=== PATIENT | male | born 1965 | race African-American/Black ===

== ENCOUNTER 2017-04-05 21:51 | Emergency (ER) | payer MEDICARE, OTHER ==
[~2017-04-05] VITALS: Ht 165.1 cm; Wt 67.1 kg
[~2017-04-05 21:51] MED LIST: CLON0.1T PO; CLOP75TA PO; FERR-26 PO; FOLI1TAB30 PO; ISOS30TA4 PO; LISI10TA2 PO; METO100T2 PO; MINO2.5T12 PO; OLAN10TA9 PO; OMEP20CA9 PO
--- NOTE | 2017-04-05 22:15 | PHYS DOC ---
Past Medical History Past Medical History: Depression, Diabetes-Type I, Hypertension, Renal Disease , Schizophrenia, Other Additional Past Medical Histor: poor historian Past Surgical History: Other Additional Past Surgical Histo: SHUNT PLACEMENT Alcohol Use: None Drug Use: Marijuana Adult General Chief Complaint Chief Complaint: MECHANICAL FALL HPI HPI Patient is a 51 year old -[place] male who presents with left knee pain. He was at [facility] and his walked in front of him tripped him and he fell landing on his left knee. This happened about 10 hours ago. He states he's has a lot of pain in his left knee and it hurts to put weight on it. He denies any other injuries. He denies hitting his head neck chest abdomen or pelvis. States the pain is in his left knee and it radiates up and down his leg. Review of Systems Review of Systems Constitutional: Denies fever or chills [] Eyes: Denies change in visual acuity, redness, or eye pain [] HENT: Denies nasal congestion or sore throat [] Respiratory: Denies cough or shortness of breath [] Cardiovascular: No additional information not addressed in HPI [] GI: Denies abdominal pain, nausea, vomiting, bloody stools or diarrhea [] : Denies dysuria or hematuria [] Musculoskeletal: Denies back pain, pain of left knee Integument: Denies rash or skin lesions [] Neurologic: Denies headache, focal weakness or sensory changes [] Endocrine: Denies polyuria or polydipsia [] Current Medications Current Medications Current Medications Medications (Trade) Dose Ordered Sig/Amanda Start Time Stop Time Status Last Admin Dose Admin Acetaminophen/ Hydrocodone Bitart (Lortab 5/325) 2 tab 1X ONCE 04/05/17 22:30 04/05/17 22:31 DC 04/05/17 22:31 2 TAB Allergies Allergies Allergies Coded Allergies Type Severity Reaction Last Updated Verified povidone-iodine Allergy Intermediate 10/16/13 Yes Physical Exam Physical Exam Constitutional: Well developed, well nourished, no acute distress, non-toxic appearance. [] HENT: Normocephalic, atraumatic, bilateral external ears normal, oropharynx moist, no oral exudates, nose normal. [] Eyes: PERRLA, EOMI, conjunctiva normal, no discharge. [] Neck: Normal range of motion, no tenderness, supple, no stridor. [] Cardiovascular:Heart rate regular rhythm, no murmur [] Lungs & Thorax: Bilateral breath sounds clear to auscultation [] Abdomen: Bowel sounds normal, soft, no tenderness, no masses, no pulsatile masses. [] Skin: Warm, dry, no erythema, no rash. [] Back: No tenderness, no CVA tenderness. [] Extremities: Tender palpation with obvious swelling of the left knee, no cyanosis, no clubbing, no edema. Able to flex and extend, but limited secondary to pain, dorsal pedis pulse 2+ and left lower extremity Neurologic: Alert and oriented X 3, normal motor function, normal sensory function, no focal deficits noted. [] Psychologic: Affect normal, judgement normal, mood normal. [] Current Patient Data Vital Signs Vital Signs Date Time Temp Pulse Resp B/P (MAP) Pulse Ox O2 Delivery O2 Flow Rate FiO2 04/05/17 22:22 98.1 74 18 196/94 (128) 97 Room Air 98.1 EKG EKG [] Radiology/Procedures Radiology/Procedures 4 views of the left knee was performed, no fractures, malalignment's, foreign bodies noted, arthritis noted. He does have a large pre-patellar effusion noted. Impressions: knee pain Course & Med Decision Making Course & Med Decision Making Pertinent Labs and Imaging studies reviewed. (See chart for details) 4 views of the left knee did not show any abnormalities except for confusion. Jovani wrap was applied, 2-5/325 [place] as was given the patient is being discharged home to follow with orthopedic surgery as needed. Crutches were provided. Return precautions given for worsening pain, inability to ambulate, numbness tingling or discoloration of his lower extremities or other concerns. He and his are agreeable Plan B discharged in stable condition at this time. Dragon Disclaimer Dragon Disclaimer This electronic medical record was generated, in whole or in part, using a voice recognition dictation system. Departure Departure Impression: Primary Impression: Knee contusion Disposition: 01 HOME, SELF-CARE Condition: STABLE Referrals: RAYOMND GUADARRAMA MD (PCP) GLEN HA MD Patient Instructions: Knee Pain, [id number] Additional Instructions: You were seen tonight for your left knee pain. You have fluid around your knee that will resolve over the next several days. Your knee is swollen because of this fluid. We applied an Jovani wrap which you can use as needed. Do not wrap it too tight. He can use crutches to help you get around to take the weight off your leg. He can use [place] for pain. [place] is a narcotic pain medicine with Tylenol in it. Please don't drive or taking this medicine or drink alcohol please to use additional Tylenol with this medicine. You should follow-up with orthopedic physician within the next week, if you're not getting any better. Return ER for severe pain, if your foot turns blue or purple, your leg swells, you have uncontrolled pain or other concerns. Scripts Hydrocodone/Apap 5-325 (NORCO 5-325 TABLET) 1 Each Tablet 1-2 TAB PO PRN Q6HRS Y for PAIN, #20 TAB 0 Refills Prov: TARIQ LING MD 04/05/17 Problem Qualifiers Primary Impression: Knee contusion Encounter type: initial encounter Laterality: left Qualified Codes: S80.02XA - Contusion of left knee, initial encounter TARIQ LING MD Apr 05, 2017 22:15
[2017-04-05 22:22] VITALS: BP 196/94
[2017-04-05] MEDS: HYDROcodone/APAP 5/325MG 1 TAB TABLET PO ONE (22:31)
[2017-04-05] MEDS ORDERED: HYDR-971 PO (23:17)
--- NOTE | 2017-04-06 07:52 | RAD ---
Indication pain associated with a fall. AP oblique and lateral views of the left knee were obtained as well as as a sunrise view. No acute bony finding is seen. There is a joint effusion. Extensive vascular calcification is noted. IMPRESSION: No acute bony finding
== END 2017-04-05 23:20 | disposition home or self-care (01) ==
LOC: ER 21:51
DX: S80.02XA Contusion of left knee, initial encounter (principal); I12.9 Hypertensive chronic kidney disease with stage 1 through stage 4 chronic kidney disease, or unspecified chronic kidney disease; E10.22 Type 1 diabetes mellitus with diabetic chronic kidney disease; N18.9 Chronic kidney disease, unspecified; F20.9 Schizophrenia, unspecified; Z91.041 Radiographic dye allergy status; W01.0XXA Fall on same level from slipping, tripping and stumbling without subsequent striking against object, initial encounter; Y93.89 Activity, other specified; Y99.8 Other external cause status; Y92.89 Other specified places as the place of occurrence of the external cause
CPT/HCPCS: 29515; 73564; 99284-25

== ENCOUNTER 2017-06-14 16:04 | Inpatient (IN) | payer MEDICARE, OTHER ==
[~2017-06-14] VITALS: Ht 165.1 cm; Wt 61.9 kg
[~2017-06-14 16:04] MED LIST changes: +HYDR-971 PO; -METO100T2 PO; +METO100T7 PO
[2017-06-14] MEDS ORDERED: OXYC-328 PO (16:49)
[2017-06-14] MEDS ORDERED: DIAZ10TA5 PO (16:49)
[2017-06-14] MEDS ORDERED: DIPH25CA58 PO (17:03)
[2017-06-14] MEDS ORDERED: ONDANSETRON PF 4 MG/2 ML VIAL. IV PRN (17:30)
[2017-06-14] MEDS ORDERED: diphenhydrAMINE HCL 25 MG CAPSULE PO PRN (17:30)
[2017-06-14] MEDS: MINOXIDIL 2.5 MG TABLET PO SCH (18:00)
[2017-06-14] MEDS: PANTOPRAZOLE 40 MG TABLET.DR. PO SCH (18:00)
[2017-06-14] MEDS ORDERED: INFLUENZA VAX SCREEN BY RX. MC ONE (18:45)
[2017-06-14 19:00] VITALS: BP 115/69
[2017-06-14 19:06] LABS: BASO % 1 % (0-3); EOS % 2 % (0-3); HEMATOCRIT 34.5 % (39.0-53.0); LYMPH # 1.1 x10^3/uL (1.0-4.8); LYMPH % 27 % (24-48); MEAN CORPUSCULAR HEMOGLOBIN 26 pg (25-35); MEAN CORPUSCULAR HGB CONC 32 g/dL (31-37); MEAN CORPUSCULAR VOLUME 82 fL (79-100); MONO % 17 % (0-9); NEUT % 53 % (31-73); PLATELET COUNT 117 x10^3/uL (140-400); RED CELL DISTRIBUTION WIDTH 20.3 % (11.5-14.5); WHITE BLOOD COUNT 4.1 x10^3/uL (4.0-11.0)
[2017-06-14 19:14] VITALS: BP 127/83
[2017-06-14 19:23] LABS: ALBUMIN 3.7 g/dL (3.4-5.0); ALBUMIN/GLOBULIN RATIO 0.9 (1.0-1.7); CALCIUM 8.4 mg/dL (8.5-10.1); CREATININE 9.6 mg/dL (0.7-1.3); GFR 6.9; POTASSIUM 3.3 mmol/L (3.5-5.1); TOTAL BILIRUBIN 0.4 mg/dL (0.2-1.0); TOTAL PROTEIN 7.6 g/dL (6.4-8.2)
[2017-06-14 19:34] LABS: PLT ESTIMATE DECREASED (ADEQUATE)
[2017-06-14 19:35] LABS: ANISOCYTOSIS MOD; HYPOCHROMIA SLIGHT; POIKILOCYTOSIS SLIGHT
[2017-06-14] MEDS: SODIUM BICARBONATE VIAL 50 MEQ in IV 1/2 NORMAL SALINE 1,000 ML IV SCH (20:24)
[2017-06-14] MEDS: diphenhydrAMINE HCL 25 MG CAPSULE PO PRN (20:25)
[2017-06-14] MEDS: diazePAM 5 MG TABLET PO SCH (20:25)
[2017-06-14] MEDS: oxyCODONE/APAP 10/325 1 TAB TABLET PO PRN (20:25)
[2017-06-14] MEDS: cloNIDine HCL 0.1 MG TABLET PO SCH (20:26)
[2017-06-14] MEDS: METOPROLOL TART IMMED RELEASE 50 MG TABLET. PO SCH (20:26)
[2017-06-14] MEDS: OLANZapine 5 MG TABLET PO SCH (20:27)
[2017-06-14] MEDS ORDERED: POTASSIUM CHLORIDE 10 MEQ TABLET.ER. PO ONE (21:15)
--- NOTE | 2017-06-14 21:24 | PDOC1 ---
History and Physical Date of Admission Date of Admission 06/13/17 Identification/Chief Complaint Chief Complaint N/V dehydration Problems: Source Source: Chart review, Patient Past Medical History Cardiovascular: CAD, HTN, Hyperlipidemia, Other (stent) Pulmonary: COPD GI: GERD Heme/Onc: Anemia NOS Psych: Other (paranoid) Rheumatologic: Other (DJD) Renal/: Chronic renal insuff, Other (dialysis) Endocrine: Diabetes Family History Family History: Hypertension Social History Smoke: 1 pack per day ALCOHOL: occassional Drugs: None Current Medications Current Medications Current Medications Medications (Trade) Dose Ordered Sig/Amanda Start Time Stop Time Status Last Admin Dose Admin Clonidine HCl (Catapres) 0.1 mg BID 06/14/17 21:00 06/14/17 20:26 0.1 MG Clopidogrel Bisulfate (Plavix) 75 mg DAILY 06/15/17 09:00 Diazepam (Valium) 10 mg BID 06/14/17 21:00 06/14/17 20:25 10 MG Diphenhydramine HCl (Benadryl) 50 mg PRN Q6HRS PRN 06/14/17 17:30 06/14/17 20:25 50 MG Influenza Virus Vaccine Quadrival (Fluarix Quad [id number] Syringe) 0.5 ml ONCE ONCE 06/15/17 09:00 06/15/17 09:01 Info (Do NOT chart on this placeholder) 0.5 each 1X ONCE 06/14/17 18:45 06/14/17 18:56 DC 06/14/17 18:45 0.5 EACH Isosorbide Mononitrate (Imdur) 30 mg DAILY 06/15/17 09:00 Lisinopril (Prinivil) 10 mg DAILY 06/15/17 09:00 Metoprolol Tartrate (Lopressor) 100 mg BID 06/14/17 21:00 06/14/17 20:26 100 MG Minoxidil (Loniten) 2.5 mg BID@0900,1700 06/14/17 18:00 Olanzapine (ZyPREXA) 10 mg QHS 06/14/17 21:00 06/14/17 20:27 10 MG Ondansetron HCl (Zofran) 4 mg PRN Q6HRS PRN 06/14/17 17:30 Oxycodone/ Acetaminophen (Percocet 10/325) 1 tab PRN Q6HRS PRN 06/14/17 17:30 06/14/17 20:25 1 TAB Pantoprazole Sodium (Protonix) 40 mg DAILYAC 06/14/17 18:00 Sodium Bicarbonate 50 meq/Sodium Chloride 1,050 ml @ 75 mls/hr Q14H 06/14/17 17:30 06/14/17 20:24 75 MLS/HR Vitamin B Complex/ Vitamin C (Iona-Dede) 1 tab DAILY 06/15/17 09:00 Allergies Allergies Allergies Coded Allergies Type Severity Reaction Last Updated Verified povidone-iodine Allergy Intermediate 10/16/13 Yes ROS Review of System CONSTITUTIONAL: No fever or chills EYES: No recent changes SKIN: No rash or itching CARDIOVASCULAR: No chest pain, syncope, palpitations, or edema RESPIRATORY: No SOB or cough GASTROINTESTINAL: + nausea, vomiting and dehydration NEUROLOGICAL: No headaches or weakness ENDOCRINE: No cold or heat intolerance GENITOURINARY: No urgency or frequency of urination MUSCULOSKELETAL: + back pain and joint pain LYMPHATICS: No enlarged lymph nodes PSYCHIATRIC: + anxiety Physical Exam Physical Exam GEN.: No apparent distress. Alert and oriented. HEENT: Head is normocephalic, atraumatic NECK: Supple. LUNGS: Clear to auscultation. HEART: RRR, S1, S2 present. Peripheral pulses intact ABDOMEN: Soft, nontender. Positive bowel sounds. EXTREMITIES: Without any cyanosis. NEUROLOGIC: Normal speech, normal tone PSYCHIATRIC: Normal affect, normal mood. SKIN: No ulcerations Vitals Vitals Vital Signs Date Time Temp Pulse Resp B/P (MAP) Pulse Ox O2 Delivery O2 Flow Rate FiO2 06/14/17 20:26 82 127/83 06/14/17 20:25 18 99 06/14/17 19:14 98.1 Room Air 98.1 Labs Labs Laboratory Tests Test 06/14/17 18:50 White Blood Count 4.1 x10^3/uL (4.0-11.0) Red Blood Count 4.20 x10^6/uL (4.30-5.70) Hemoglobin 11.0 g/dL (13.0-17.5) Hematocrit 34.5 % (39.0-53.0) Mean Corpuscular Volume 82 fL (79-100) Mean Corpuscular Hemoglobin 26 pg (25-35) Mean Corpuscular Hemoglobin Concent 32 g/dL (31-37) Red Cell Distribution Width 20.3 % (11.5-14.5) Platelet Count 117 x10^3/uL (140-400) Neutrophils (%) (Auto) 53 % (31-73) Lymphocytes (%) (Auto) 27 % (24-48) Monocytes (%) (Auto) 17 % (0-9) Eosinophils (%) (Auto) 2 % (0-3) Basophils (%) (Auto) 1 % (0-3) Neutrophils # (Auto) 2.2 x10^3uL (1.8-7.7) Lymphocytes # (Auto) 1.1 x10^3/uL (1.0-4.8) Monocytes # (Auto) 0.7 x10^3/uL (0.0-1.1) Eosinophils # (Auto) 0.1 x10^3/uL (0.0-0.7) Basophils # (Auto) 0.0 x10^3/uL (0.0-0.2) Platelet Estimate Decreased (ADEQUATE) Hypochromasia Slight Poikilocytosis Slight Anisocytosis Mod Sodium Level 138 mmol/L (136-145) Potassium Level 3.3 mmol/L (3.5-5.1) Chloride Level 91 mmol/L (98-107) Carbon Dioxide Level 35 mmol/L (21-32) Anion Gap 12 (6-14) Blood Urea Nitrogen 32 mg/dL (8-26) Creatinine 9.6 mg/dL (0.7-1.3) Estimated GFR (Cockcroft-Gault) 6.9 BUN/Creatinine Ratio 3 (6-20) Glucose Level 93 mg/dL (70-99) Calcium Level 8.4 mg/dL (8.5-10.1) Total Bilirubin 0.4 mg/dL (0.2-1.0) Aspartate Amino Transf (AST/SGOT) 23 U/L (15-37) Alanine Aminotransferase (ALT/SGPT) 12 U/L (16-63) Alkaline Phosphatase 164 U/L (46-116) Total Protein 7.6 g/dL (6.4-8.2) Albumin 3.7 g/dL (3.4-5.0) Albumin/Globulin Ratio 0.9 (1.0-1.7) Laboratory Tests Test 06/14/17 18:50 White Blood Count 4.1 x10^3/uL (4.0-11.0) Red Blood Count 4.20 x10^6/uL (4.30-5.70) Hemoglobin 11.0 g/dL (13.0-17.5) Hematocrit 34.5 % (39.0-53.0) Mean Corpuscular Volume 82 fL (79-100) Mean Corpuscular Hemoglobin 26 pg (25-35) Mean Corpuscular Hemoglobin Concent 32 g/dL (31-37) Red Cell Distribution Width 20.3 % (11.5-14.5) Platelet Count 117 x10^3/uL (140-400) Neutrophils (%) (Auto) 53 % (31-73) Lymphocytes (%) (Auto) 27 % (24-48) Monocytes (%) (Auto) 17 % (0-9) Eosinophils (%) (Auto) 2 % (0-3) Basophils (%) (Auto) 1 % (0-3) Neutrophils # (Auto) 2.2 x10^3uL (1.8-7.7) Lymphocytes # (Auto) 1.1 x10^3/uL (1.0-4.8) Monocytes # (Auto) 0.7 x10^3/uL (0.0-1.1) Eosinophils # (Auto) 0.1 x10^3/uL (0.0-0.7) Basophils # (Auto) 0.0 x10^3/uL (0.0-0.2) Platelet Estimate Decreased (ADEQUATE) Hypochromasia Slight Poikilocytosis Slight Anisocytosis Mod Sodium Level 138 mmol/L (136-145) Potassium Level 3.3 mmol/L (3.5-5.1) Chloride Level 91 mmol/L (98-107) Carbon Dioxide Level 35 mmol/L (21-32) Anion Gap 12 (6-14) Blood Urea Nitrogen 32 mg/dL (8-26) Creatinine 9.6 mg/dL (0.7-1.3) Estimated GFR (Cockcroft-Gault) 6.9 BUN/Creatinine Ratio 3 (6-20) Glucose Level 93 mg/dL (70-99) Calcium Level 8.4 mg/dL (8.5-10.1) Total Bilirubin 0.4 mg/dL (0.2-1.0) Aspartate Amino Transf (AST/SGOT) 23 U/L (15-37) Alanine Aminotransferase (ALT/SGPT) 12 U/L (16-63) Alkaline Phosphatase 164 U/L (46-116) Total Protein 7.6 g/dL (6.4-8.2) Albumin 3.7 g/dL (3.4-5.0) Albumin/Globulin Ratio 0.9 (1.0-1.7) VTE Prophylaxis Ordered VTE Prophylaxis Devices: Yes VTE Pharmacological Prophylaxi: Yes Assessment/Plan Assessment/Plan 1- Gastroenteritis, N/V and diarrhea 2-dehydration 3-hypokalemia 4-HTN 5-CAD by hx and stent 6-smoker 7-HILDA DEVRIES MD Jun 14, 2017 21:24
[2017-06-14] MEDS ORDERED: DEXTROSE 50% 25 GM / 50ML DISP.SYRIN. IV PRN (21:30)
[2017-06-14 23:00] VITALS: BP 120/70
[2017-06-15 03:28] VITALS: BP 98/49
[2017-06-15 05:27] LABS: BASO % 1 % (0-3); EOS % 4 % (0-3); HEMOGLOBIN 11.7 g/dL (13.0-17.5); LYMPH # 1.2 x10^3/uL (1.0-4.8); LYMPH % 34 % (24-48); MEAN CORPUSCULAR HEMOGLOBIN 27 pg (25-35); MEAN CORPUSCULAR HGB CONC 32 g/dL (31-37); MEAN CORPUSCULAR VOLUME 84 fL (79-100); MONO % 12 % (0-9); NEUT % 48 % (31-73); PLATELET COUNT 120 x10^3/uL (140-400); RED BLOOD COUNT 4.41 x10^6/uL (4.30-5.70); RED CELL DISTRIBUTION WIDTH 20.6 % (11.5-14.5); WHITE BLOOD COUNT 3.6 x10^3/uL (4.0-11.0)
[2017-06-15 05:49] LABS: ALBUMIN/GLOBULIN RATIO 0.9 (1.0-1.7); CALCIUM 6.4 mg/dL (8.5-10.1); CREATININE 8.6 mg/dL (0.7-1.3); GFR 7.9; TOTAL BILIRUBIN 0.3 mg/dL (0.2-1.0); TOTAL PROTEIN 6.4 g/dL (6.4-8.2)
[2017-06-15 05:55] LABS: POTASSIUM 2.8 mmol/L (3.5-5.1)
[2017-06-15] MEDS: PANTOPRAZOLE 40 MG TABLET.DR. PO SCH (06:14)
[2017-06-15] MEDS: oxyCODONE/APAP 10/325 1 TAB TABLET PO PRN ×3 (06:14→21:49)
[2017-06-15] MEDS ORDERED: POTASSIUM CHLORIDE 20 MEQ TABLET.ER. PO ONE (06:15)
[2017-06-15 07:00] VITALS: BP 97/69
--- NOTE | 2017-06-15 08:05 | PDOC2 ---
CONSULT Date of Consult Date of Consult DATE: 06/15/17 TIME: 08:05 Reason for Consult Reason for Consult: ESRD Referring Physician Referring Physician: Dr Lan Identification/Chief Complaint Chief Complaint NVD Problems: Source Source: Chart review, Patient History of Present Illness Reason for Visit: as dictated Past Medical History Cardiovascular: CAD, HTN, Hyperlipidemia, Other (stent) Pulmonary: COPD GI: GERD Heme/Onc: Anemia NOS Psych: Other (paranoid) Rheumatologic: Other (DJD) Renal/: Chronic renal insuff, Other (dialysis) Endocrine: Diabetes Family History Family History: Hypertension, Kidney Disease (uncle on HD) Social History 1 pack per day ALCOHOL: occassional Drugs: None Lives: Alone Current Medications Current Medications Current Medications Clonidine HCl (Catapres) 0.1 mg BID PO Last administered on 06/14/17 20:26; Start 06/14/17 at 21:00 Clopidogrel Bisulfate (Plavix) 75 mg DAILY PO ; Start 06/15/17 at 09:00 Diazepam (Valium) 10 mg BID PO Last administered on 06/14/17 20:25; Start at 21:00 Diphenhydramine HCl (Benadryl) 25 mg PRN Q6HRS PRN PO IT; Start 06/14/17 at 17 :30 Diphenhydramine HCl (Benadryl) 50 mg PRN Q6HRS PRN PO IT Last administered on 06/14/17 20:25; Start 06/14/17 at 17:30 Isosorbide Mononitrate (Imdur) 30 mg DAILY PO ; Start 06/15/17 at 09:00 Lisinopril (Prinivil) 10 mg DAILY PO ; Start 06/15/17 at 09:00 Minoxidil (Loniten) 2.5 mg BID@0900,1700 PO ; Start 06/14/17 at 18:00 Oxycodone/ Acetaminophen (Percocet 10/325) 1 tab PRN Q6HRS PRN PO PAIN Last administered on 06/15/17 06:14; Start 06/14/17 at 17:30 Vitamin B Complex/ Vitamin C (Iona-Dede) 1 tab DAILY PO ; Start 06/15/17 at 09: 00 Metoprolol Tartrate (Lopressor) 100 mg BID PO Last administered on 06/14/17 20:26; Start 06/14/17 at 21:00 Olanzapine (ZyPREXA) 10 mg QHS PO Last administered on 06/14/17 20:27; Start 06/14/17 at 21:00 Pantoprazole Sodium (Protonix) 40 mg DAILYAC PO Last administered on 06:14; Start 06/14/17 at 18:00 Ondansetron HCl (Zofran) 4 mg PRN Q6HRS PRN IV NAUSEA/VOMITING; Start at 17:30 Sodium Bicarbonate 50 meq/Sodium Chloride 1,050 ml @ 75 mls/hr Q14H IV Last administered on 06/14/17 20:24; Start 06/14/17 at 17:30 Info (Do NOT chart on this placeholder) 0.5 each 1X ONCE MC Last administered on 06/14/17 18:45; Start 06/14/17 at 18:45; Stop 06/14/17 at 18:56; Status DC Influenza Virus Vaccine Quadrival (Fluarix Quad [id number] Syringe) 0.5 ml ONCE ONCE VAX IM ; Start 06/15/17 at 09:00; Stop 06/15/17 at 09:01 Potassium Chloride (Klor-Con) 10 meq 1X ONCE PO Last administered on 21:56; Start 06/14/17 at 21:15; Stop 06/14/17 at 21:19; Status DC Insulin Aspart (NovoLOG) 0-5 UNITS TIDWMEALS SQ ; Start 06/15/17 at 08:00 Dextrose (Dextrose 50%-Water Syringe) 12.5 gm PRN Q15MIN PRN IV SEE COMMENTS; Start 06/14/17 at 21:30 Potassium Chloride (Klor-Con) 40 meq 1X ONCE PO Last administered on 06:14; Start 06/15/17 at 06:15; Stop 06/15/17 at 06:16; Status DC Active Scripts Active Reported Benadryl (Diphenhydramine Hcl) 25 Mg Capsule 2 Cap PO PRN Q6HRS PRN Benadryl (Diphenhydramine Hcl) 25 Mg Capsule 1 Cap PO PRN Q6HRS PRN Diazepam 10 Mg Tablet 10 Mg PO BID Percocet 10-325 Mg Tablet (Oxycodone/Acetaminophen) 1 Each Tablet 1 Tab PO PRN Q6HRS PRN Ferrous Sulfate 325 Mg Tablet 325 Mg PO BID Lisinopril 10 Mg Tablet 10 Mg PO DAILY Dialyvite Tablet (Folic Acid/Vitamin B Comp W-C) 1 Each Tablet 1 Each PO DAILY Clopidogrel (Clopidogrel Bisulfate) 75 Mg Tablet 75 Mg PO DAILY Omeprazole 20 Mg Capsule.dr 20 Mg PO BID Isosorbide Mononitrate Er (Isosorbide Mononitrate) 30 Mg Tab.er.24h 30 Mg PO DAILY Metoprolol Tartrate 100 Mg Tablet 100 Mg PO BID Clonidine Hcl 0.1 Mg Tablet 0.1 Mg PO BID Olanzapine 10 Mg Tablet 10 Mg PO HS Minoxidil 2.5 Mg Tablet 2.5 Mg PO BID Allergies Allergies: Coded Allergies: povidone-iodine (Verified Allergy, Intermediate, 10/16/13) ROS Review of System GEN: no Fevers no Chills EYES: no new Visual Complaints ENT: no EN Drainage no Hearing deficiets CVS: no Orthopnea no CP RESP: no SOB no LARRY GI: + Nausea + Vomiting + Diarrhea : no Dysuria no Urgency HEME: no easy bruising no Palp Ly Nodes NEURO no Focal Weakness no Sz PSYCH: no Suicidal Ideation no Depression SKIN: no Rashes ENDO: no Polyuria or Polydipsia no Hot/Cold Intolerance MU SK: occ Arthraigia occ Myalgia Physical Exam Physical Exam General Appearance: Awake Alert Oriented x 3 In no Distress Eyes: VIsion Unchanged Conjunctiva Normal EN: No EN Drainage Mucous Memb. moist Neck: no JVD no JVP Supple no Thyromegaly CVS: S1 S2 + Murmur No Gallop No Rub no Edema Resp: no Rales no Rhonchi no Acc. Muscle use GI: BAS +ve NO Bruit Non Tender Non Distended : no CVA tenderness; no Suprapubic Tenderness SKIN: no Rashes Breast Exam deferred Mu.Sk: Adequate ROM no Muscle Atrophy Heme: Unable to palpate Obvious LAD no palp Splenomegaly NEURO: Good Strength and Tone Cranial Nerves II - XII grossly intact Psych: not Depressed no Active hallucination Vital Signs Vital Signs Date Time Temp Pulse Resp B/P (MAP) Pulse Ox O2 Delivery O2 Flow Rate FiO2 06/15/17 07:14 20 93 Room Air 06/15/17 03:28 96.9 58 98/49 (65) 96.9 Assessment & Plan ESRD: Dialysis as below F 180 NR 3.5 Hrs 3 K 3.0 Ca 140 Na 30 HC03 Qb 350 + Qd 500+ Heparin 0 Units Uf to dry weight as tolerated May give 25-50 gms of 25% Albumin if needed to maintain Hemodynamic stability Treatment plan reviewed and discussed with photographic laboratory technician Low K - suspect due to IVF with Bicarb - PO KCl given so 3K bath today Lowisch Ricardo unclear etio - 3 Ricardo bath, check and correct mag if needed. Anemia: no Epogen for hgb > 11. Transfuse with next HD as needed. HTN: Current BP meds reviewed. See orders for changes. Bone & Mineral: fololow phos and alter binder regimen ? Accuracy of med list Discussed Plan of Care and prognosis etc. at length with pt Labs Labs Laboratory Tests Test 06/14/17 18:50 06/14/17 22:19 06/15/17 04:25 White Blood Count 4.1 x10^3/uL (4.0-11.0) 3.6 x10^3/uL (4.0-11.0) Red Blood Count 4.20 x10^6/uL (4.30-5.70) 4.41 x10^6/uL (4.30-5.70) Hemoglobin 11.0 g/dL (13.0-17.5) 11.7 g/dL (13.0-17.5) Hematocrit 34.5 % (39.0-53.0) 37.0 % (39.0-53.0) Mean Corpuscular Volume 82 fL (79-100) 84 fL (79-100) Mean Corpuscular Hemoglobin 26 pg (25-35) 27 pg (25-35) Mean Corpuscular Hemoglobin Concent 32 g/dL (31-37) 32 g/dL (31-37) Red Cell Distribution Width 20.3 % (11.5-14.5) 20.6 % (11.5-14.5) Platelet Count 117 x10^3/uL (140-400) 120 x10^3/uL (140-400) Neutrophils (%) (Auto) 53 % (31-73) 48 % (31-73) Lymphocytes (%) (Auto) 27 % (24-48) 34 % (24-48) Monocytes (%) (Auto) 17 % (0-9) 12 % (0-9) Eosinophils (%) (Auto) 2 % (0-3) 4 % (0-3) Basophils (%) (Auto) 1 % (0-3) 1 % (0-3) Neutrophils # (Auto) 2.2 x10^3uL (1.8-7.7) 1.8 x10^3uL (1.8-7.7) Lymphocytes # (Auto) 1.1 x10^3/uL (1.0-4.8) 1.2 x10^3/uL (1.0-4.8) Monocytes # (Auto) 0.7 x10^3/uL (0.0-1.1) 0.4 x10^3/uL (0.0-1.1) Eosinophils # (Auto) 0.1 x10^3/uL (0.0-0.7) 0.2 x10^3/uL (0.0-0.7) Basophils # (Auto) 0.0 x10^3/uL (0.0-0.2) 0.0 x10^3/uL (0.0-0.2) Platelet Estimate Decreased (ADEQUATE) Hypochromasia Slight Poikilocytosis Slight Anisocytosis Mod Sodium Level 138 mmol/L (136-145) 138 mmol/L (136-145) Potassium Level 3.3 mmol/L (3.5-5.1) 2.8 mmol/L (3.5-5.1) Chloride Level 91 mmol/L (98-107) 91 mmol/L (98-107) Carbon Dioxide Level 35 mmol/L (21-32) 36 mmol/L (21-32) Anion Gap 12 (6-14) 11 (6-14) Blood Urea Nitrogen 32 mg/dL (8-26) 29 mg/dL (8-26) Creatinine 9.6 mg/dL (0.7-1.3) 8.6 mg/dL (0.7-1.3) Estimated GFR (Cockcroft-Gault) 6.9 7.9 BUN/Creatinine Ratio 3 (6-20) 3 (6-20) Glucose Level 93 mg/dL (70-99) 109 mg/dL (70-99) Calcium Level 8.4 mg/dL (8.5-10.1) 6.4 mg/dL (8.5-10.1) Magnesium Level 1.9 mg/dL (1.8-2.4) Total Bilirubin 0.4 mg/dL (0.2-1.0) 0.3 mg/dL (0.2-1.0) Aspartate Amino Transf (AST/SGOT) 23 U/L (15-37) 19 U/L (15-37) Alanine Aminotransferase (ALT/SGPT) 12 U/L (16-63) 9 U/L (16-63) Alkaline Phosphatase 164 U/L (46-116) 150 U/L (46-116) Total Protein 7.6 g/dL (6.4-8.2) 6.4 g/dL (6.4-8.2) Albumin 3.7 g/dL (3.4-5.0) 3.0 g/dL (3.4-5.0) Albumin/Globulin Ratio 0.9 (1.0-1.7) 0.9 (1.0-1.7) Glucose (Fingerstick) 200 mg/dL (70-99) Lipase 72 U/L (73-393) Laboratory Tests Test 06/14/17 18:50 06/14/17 22:19 06/15/17 04:25 White Blood Count 4.1 x10^3/uL (4.0-11.0) 3.6 x10^3/uL (4.0-11.0) Red Blood Count 4.20 x10^6/uL (4.30-5.70) 4.41 x10^6/uL (4.30-5.70) Hemoglobin 11.0 g/dL (13.0-17.5) 11.7 g/dL (13.0-17.5) Hematocrit 34.5 % (39.0-53.0) 37.0 % (39.0-53.0) Mean Corpuscular Volume 82 fL (79-100) 84 fL (79-100) Mean Corpuscular Hemoglobin 26 pg (25-35) 27 pg (25-35) Mean Corpuscular Hemoglobin Concent 32 g/dL (31-37) 32 g/dL (31-37) Red Cell Distribution Width 20.3 % (11.5-14.5) 20.6 % (11.5-14.5) Platelet Count 117 x10^3/uL (140-400) 120 x10^3/uL (140-400) Neutrophils (%) (Auto) 53 % (31-73) 48 % (31-73) Lymphocytes (%) (Auto) 27 % (24-48) 34 % (24-48) Monocytes (%) (Auto) 17 % (0-9) 12 % (0-9) Eosinophils (%) (Auto) 2 % (0-3) 4 % (0-3) Basophils (%) (Auto) 1 % (0-3) 1 % (0-3) Neutrophils # (Auto) 2.2 x10^3uL (1.8-7.7) 1.8 x10^3uL (1.8-7.7) Lymphocytes # (Auto) 1.1 x10^3/uL (1.0-4.8) 1.2 x10^3/uL (1.0-4.8) Monocytes # (Auto) 0.7 x10^3/uL (0.0-1.1) 0.4 x10^3/uL (0.0-1.1) Eosinophils # (Auto) 0.1 x10^3/uL (0.0-0.7) 0.2 x10^3/uL (0.0-0.7) Basophils # (Auto) 0.0 x10^3/uL (0.0-0.2) 0.0 x10^3/uL (0.0-0.2) Platelet Estimate Decreased (ADEQUATE) Hypochromasia Slight Poikilocytosis Slight Anisocytosis Mod Sodium Level 138 mmol/L (136-145) 138 mmol/L (136-145) Potassium Level 3.3 mmol/L (3.5-5.1) 2.8 mmol/L (3.5-5.1) Chloride Level 91 mmol/L (98-107) 91 mmol/L (98-107) Carbon Dioxide Level 35 mmol/L (21-32) 36 mmol/L (21-32) Anion Gap 12 (6-14) 11 (6-14) Blood Urea Nitrogen 32 mg/dL (8-26) 29 mg/dL (8-26) Creatinine 9.6 mg/dL (0.7-1.3) 8.6 mg/dL (0.7-1.3) Estimated GFR (Cockcroft-Gault) 6.9 7.9 BUN/Creatinine Ratio 3 (6-20) 3 (6-20) Glucose Level 93 mg/dL (70-99) 109 mg/dL (70-99) Calcium Level 8.4 mg/dL (8.5-10.1) 6.4 mg/dL (8.5-10.1) Magnesium Level 1.9 mg/dL (1.8-2.4) Total Bilirubin 0.4 mg/dL (0.2-1.0) 0.3 mg/dL (0.2-1.0) Aspartate Amino Transf (AST/SGOT) 23 U/L (15-37) 19 U/L (15-37) Alanine Aminotransferase (ALT/SGPT) 12 U/L (16-63) 9 U/L (16-63) Alkaline Phosphatase 164 U/L (46-116) 150 U/L (46-116) Total Protein 7.6 g/dL (6.4-8.2) 6.4 g/dL (6.4-8.2) Albumin 3.7 g/dL (3.4-5.0) 3.0 g/dL (3.4-5.0) Albumin/Globulin Ratio 0.9 (1.0-1.7) 0.9 (1.0-1.7) Glucose (Fingerstick) 200 mg/dL (70-99) Lipase 72 U/L (73-393) VANDANA READ MD Jun 15, 2017 08:05
[2017-06-15] MEDS: INSULIN ASPART 300 UNITS/3 ML INSULN.PEN SQ SCH ×3 (08:37→18:06)
--- NOTE | 2017-06-15 08:37 | RAD ---
Indication: Shortness of air. Time of exam 1917 hours. Correlation is made with prior chest from 12/14/2016. The heart is enlarged. Lungs are clear. No infiltrate or failure is detected. No effusion or pneumothorax is seen. Impression: No acute cardiopulmonary process is detected.
[2017-06-15] MEDS: cloNIDine HCL 0.1 MG TABLET PO SCH ×2 (08:38→21:49)
[2017-06-15] MEDS: MINOXIDIL 2.5 MG TABLET PO SCH ×2 (08:38→17:00)
[2017-06-15] MEDS: LISINOPRIL 10 MG TABLET PO SCH (08:39)
[2017-06-15] MEDS: METOPROLOL TART IMMED RELEASE 50 MG TABLET. PO SCH ×2 (08:39→21:48)
[2017-06-15] MEDS: CLOPIDOGREL BISULFATE 75 MG TABLET PO SCH (08:41)
[2017-06-15] MEDS: ISOSORBIDE MONONITRATE ER 30 MG TAB.ER.24H PO SCH (08:41)
[2017-06-15] MEDS: FOLIC/VIT B COMP W-C (RENAL) TABLET. PO SCH (08:42)
[2017-06-15] MEDS: diazePAM 5 MG TABLET PO SCH ×2 (08:42→21:48)
[2017-06-15] MEDS: SODIUM BICARBONATE VIAL 50 MEQ in IV 1/2 NORMAL SALINE 1,000 ML IV SCH (08:57)
[2017-06-15] MEDS: diphenhydrAMINE HCL 25 MG CAPSULE PO PRN ×2 (08:58→21:49)
[2017-06-15] MEDS ORDERED: FLU VACC QS2017-18 (36MOS+)/PF 0.5 ML SYRINGE. VAX IM ONE (09:00)
--- NOTE | 2017-06-15 09:54 | PDOC ---
SUBJECTIVE Subjective no diarrhea, still nausea, feels some better but c/o severe iching especially at night when warm OBJECTIVE Vital Signs Vital Signs Date Time Temp Pulse Resp B/P (MAP) Pulse Ox O2 Delivery O2 Flow Rate FiO2 06/15/17 07:14 20 93 Room Air 06/15/17 07:00 97.8 114 18 97/69 (78) 98 Room Air 97.8 06/15/17 06:14 93 Room Air 06/15/17 03:28 96.9 58 18 98/49 (65) 93 Room Air 96.9 06/14/17 23:00 97.9 56 18 120/70 (87) 94 Room Air 97.9 06/14/17 20:26 82 127/83 06/14/17 20:26 82 127/83 06/14/17 20:25 18 99 06/14/17 20:00 Room Air 06/14/17 19:14 98.1 82 20 127/83 (98) 99 Room Air 98.1 06/14/17 19:00 97.7 51 18 115/69 (84) 92 Room Air 97.7 I & O Intake and Output 06/15/17 07:00 Intake Total 650 ml Balance 650 ml Intake Oral 650 ml PHYSICAL EXAM Physical Exam lungs clear heart RRR abd soft ext no edema skin mei of itching with scratches and few bumps ASSESSMENT/PLAN Assessment/Plan 1 gastroenteritis better will advance diet 2 hypokalemia replacing 3 scabies/Itching 4 CKD on dialysis Problems: COMMENT Lab Laboratory Tests Test 06/14/17 18:50 06/14/17 22:19 06/15/17 04:25 06/15/17 07:46 White Blood Count 4.1 x10^3/uL (4.0-11.0) 3.6 x10^3/uL (4.0-11.0) Red Blood Count 4.20 x10^6/uL (4.30-5.70) 4.41 x10^6/uL (4.30-5.70) Hemoglobin 11.0 g/dL (13.0-17.5) 11.7 g/dL (13.0-17.5) Hematocrit 34.5 % (39.0-53.0) 37.0 % (39.0-53.0) Mean Corpuscular Volume 82 fL (79-100) 84 fL (79-100) Mean Corpuscular Hemoglobin 26 pg (25-35) 27 pg (25-35) Mean Corpuscular Hemoglobin Concent 32 g/dL (31-37) 32 g/dL (31-37) Red Cell Distribution Width 20.3 % (11.5-14.5) 20.6 % (11.5-14.5) Platelet Count 117 x10^3/uL (140-400) 120 x10^3/uL (140-400) Neutrophils (%) (Auto) 53 % (31-73) 48 % (31-73) Lymphocytes (%) (Auto) 27 % (24-48) 34 % (24-48) Monocytes (%) (Auto) 17 % (0-9) 12 % (0-9) Eosinophils (%) (Auto) 2 % (0-3) 4 % (0-3) Basophils (%) (Auto) 1 % (0-3) 1 % (0-3) Neutrophils # (Auto) 2.2 x10^3uL (1.8-7.7) 1.8 x10^3uL (1.8-7.7) Lymphocytes # (Auto) 1.1 x10^3/uL (1.0-4.8) 1.2 x10^3/uL (1.0-4.8) Monocytes # (Auto) 0.7 x10^3/uL (0.0-1.1) 0.4 x10^3/uL (0.0-1.1) Eosinophils # (Auto) 0.1 x10^3/uL (0.0-0.7) 0.2 x10^3/uL (0.0-0.7) Basophils # (Auto) 0.0 x10^3/uL (0.0-0.2) 0.0 x10^3/uL (0.0-0.2) Platelet Estimate Decreased (ADEQUATE) Hypochromasia Slight Poikilocytosis Slight Anisocytosis Mod Sodium Level 138 mmol/L (136-145) 138 mmol/L (136-145) Potassium Level 3.3 mmol/L (3.5-5.1) 2.8 mmol/L (3.5-5.1) Chloride Level 91 mmol/L (98-107) 91 mmol/L (98-107) Carbon Dioxide Level 35 mmol/L (21-32) 36 mmol/L (21-32) Anion Gap 12 (6-14) 11 (6-14) Blood Urea Nitrogen 32 mg/dL (8-26) 29 mg/dL (8-26) Creatinine 9.6 mg/dL (0.7-1.3) 8.6 mg/dL (0.7-1.3) Estimated GFR (Cockcroft-Gault) 6.9 7.9 BUN/Creatinine Ratio 3 (6-20) 3 (6-20) Glucose Level 93 mg/dL (70-99) 109 mg/dL (70-99) Calcium Level 8.4 mg/dL (8.5-10.1) 6.4 mg/dL (8.5-10.1) Magnesium Level 1.9 mg/dL (1.8-2.4) Total Bilirubin 0.4 mg/dL (0.2-1.0) 0.3 mg/dL (0.2-1.0) Aspartate Amino Transf (AST/SGOT) 23 U/L (15-37) 19 U/L (15-37) Alanine Aminotransferase (ALT/SGPT) 12 U/L (16-63) 9 U/L (16-63) Alkaline Phosphatase 164 U/L (46-116) 150 U/L (46-116) Total Protein 7.6 g/dL (6.4-8.2) 6.4 g/dL (6.4-8.2) Albumin 3.7 g/dL (3.4-5.0) 3.0 g/dL (3.4-5.0) Albumin/Globulin Ratio 0.9 (1.0-1.7) 0.9 (1.0-1.7) Glucose (Fingerstick) 200 mg/dL (70-99) 140 mg/dL (70-99) Erythrocyte Sedimentation Rate 21 (0-15) Lipase 72 U/L (73-393) HILDA ARECHIGA MD Jun 15, 2017 09:54
[2017-06-15] MEDS ORDERED: PERMETHRIN 5% TOPICAL CREAM 60GM TUBE. TP ONE (10:00)
[2017-06-15] MEDS ORDERED: MAGNESIUM SULFATE 2GM 50 ML IV PRN (10:15)
--- NOTE | 2017-06-15 10:49 | CONS ---
DATE OF CONSULTATION: 06/15/2017 PRIMARY PHYSICIAN: Dr. Lan. REASON FOR CONSULTATION: ESRD dialysis. HISTORY OF PRESENT ILLNESS: The patient is a 52-year-old -Cypriot gentleman who currently dialyzes under the care of Dr. Edgardo Coronado at [facility]. He goes on a Wednesday, , Wednesday schedule. Over the weekend, he developed nausea, vomiting and profuse diarrhea with generalized weakness. He was unable to keep his food down and presented to the ER for further evaluation. He claims he has not missed any dialysis. He goes on a regular basis. He still lives on the [facility]. He was feeling weak and dehydrated and was admitted to the hospital for further evaluation. He denies any fevers or chills at this time. He was placed on IV fluids with bicarb. He is diagnosed now with gastroenteritis. He did have some dizziness and fatigue. He was too weak to stand up due to his dehydration. Blood pressures were somewhat on the low side. This morning on presentation, he appeared to be okay. He was somewhat bradycardic overnight also with heart rates in the 50s at times. In this setting, we were asked to see him for further evaluation of his dialysis. Dialysis has been set up for the patient later today. VANDANA READ MD DR: TRINITY/loretta JOB#: [id number] / [id number]
[2017-06-15 11:59] VITALS: BP 95/54
[2017-06-15] MEDS ORDERED: IV NORMAL SALINE 1000ML BAG 1,000 ML IV PRN ×2 (14:37)
[2017-06-15] MEDS ORDERED: DIALYSIS PATIENT. MC PRN ×2 (14:45)
[2017-06-15] MEDS ORDERED: diphenhydrAMINE 50 MG/ML VIAL IV PRN (14:45)
[2017-06-15 19:00] VITALS: BP 114/59
[2017-06-15] MEDS: OLANZapine 5 MG TABLET PO SCH (21:52)
[2017-06-15 23:00] VITALS: BP 112/67
[2017-06-16] VITALS (7 sets, daily range): BP systolic 93–125; BP diastolic 48–76
[2017-06-16 06:03] LABS: HEMATOCRIT 33.1 % (39.0-53.0); HEMOGLOBIN 10.6 g/dL (13.0-17.5); RED BLOOD COUNT 3.97 x10^6/uL (4.30-5.70); WHITE BLOOD COUNT 3.6 x10^3/uL (4.0-11.0)
[2017-06-16 06:16] LABS: ALBUMIN 3.1 g/dL (3.4-5.0); CALCIUM 7.8 mg/dL (8.5-10.1); CREATININE 7.6 mg/dL (0.7-1.3); GFR 9.1; MAGNESIUM 1.7 mg/dL (1.8-2.4); PHOSPHORUS 4.1 mg/dL (2.6-4.7); POTASSIUM 4.5 mmol/L (3.5-5.1)
[2017-06-16] MEDS: PANTOPRAZOLE 40 MG TABLET.DR. PO SCH (07:57)
[2017-06-16] MEDS: INSULIN ASPART 300 UNITS/3 ML INSULN.PEN SQ SCH ×3 (07:57→17:00)
[2017-06-16] MEDS: diazePAM 5 MG TABLET PO SCH (09:01)
[2017-06-16] MEDS: MINOXIDIL 2.5 MG TABLET PO SCH ×2 (09:01→17:05)
[2017-06-16] MEDS: oxyCODONE/APAP 10/325 1 TAB TABLET PO PRN (09:01)
[2017-06-16] MEDS: METOPROLOL TART IMMED RELEASE 50 MG TABLET. PO SCH ×2 (09:01→20:52)
[2017-06-16] MEDS: ISOSORBIDE MONONITRATE ER 30 MG TAB.ER.24H PO SCH (09:02)
[2017-06-16] MEDS: LISINOPRIL 10 MG TABLET PO SCH (09:02)
[2017-06-16] MEDS: CLOPIDOGREL BISULFATE 75 MG TABLET PO SCH (09:02)
[2017-06-16] MEDS: cloNIDine HCL 0.1 MG TABLET PO SCH (09:02)
[2017-06-16] MEDS: FOLIC/VIT B COMP W-C (RENAL) TABLET. PO SCH (09:02)
--- NOTE | 2017-06-16 09:37 | PDOC ---
SUBJECTIVE Subjective He is very sleepy today, apparently he has cysts scheduled Valium morning and evening and that seems to be sedating him too much OBJECTIVE Vital Signs Vital Signs Date Time Temp Pulse Resp B/P (MAP) Pulse Ox O2 Delivery O2 Flow Rate FiO2 06/16/17 09:02 61 124/67 06/16/17 09:02 61 124/67 06/16/17 09:02 61 124/67 06/16/17 09:01 61 124/67 06/16/17 09:01 Room Air 06/16/17 09:01 61 124/67 06/16/17 08:00 Room Air 06/16/17 07:00 97.7 61 18 124/67 (86) 94 Room Air 97.7 06/16/17 03:00 97.7 60 18 116/76 (89) 93 Room Air 97.7 06/15/17 23:00 97.7 70 18 112/67 (82) 91 Room Air 97.7 06/15/17 22:49 18 93 Room Air 06/15/17 21:49 18 93 Room Air 06/15/17 21:49 63 114/59 06/15/17 21:48 63 114/59 06/15/17 20:05 Room Air 06/15/17 19:00 97.7 63 18 114/59 (77) 93 Room Air 97.7 06/15/17 12:52 20 92 Room Air 06/15/17 11:59 57 18 95/54 (68) 92 Room Air I & O Intake and Output 06/16/17 06:59 Intake Total 920 ml Output Total 0 ml Balance 920 ml Intake Oral 920 ml Output Urine Total 0 ml PHYSICAL EXAM Physical Exam She is extremely sleepy at present time Lungs fairly clear Heart regular rate and rhythm Abdomen soft nontender Extremities no edema ASSESSMENT/PLAN Assessment/Plan His gastroenteritis seem to have improved, his itching also has improved, his potassium is normal today, however he is extremely sedated will DC all his medication that affect his alertness, increase his activities and plan for discharge after dialysis tomorrow if continues to improve Problems: COMMENT Lab Laboratory Tests Test 06/15/17 11:36 06/15/17 18:06 06/15/17 21:37 06/16/17 05:38 Glucose (Fingerstick) 101 mg/dL (70-99) 151 mg/dL (70-99) 150 mg/dL (70-99) White Blood Count 3.6 x10^3/uL (4.0-11.0) Red Blood Count 3.97 x10^6/uL (4.30-5.70) Hemoglobin 10.6 g/dL (13.0-17.5) Hematocrit 33.1 % (39.0-53.0) Mean Corpuscular Volume 83 fL (79-100) Mean Corpuscular Hemoglobin 27 pg (25-35) Mean Corpuscular Hemoglobin Concent 32 g/dL (31-37) Red Cell Distribution Width 21.0 % (11.5-14.5) Platelet Count 113 x10^3/uL (140-400) Sodium Level 140 mmol/L (136-145) Potassium Level 4.5 mmol/L (3.5-5.1) Chloride Level 99 mmol/L (98-107) Carbon Dioxide Level 30 mmol/L (21-32) Anion Gap 11 (6-14) Blood Urea Nitrogen 23 mg/dL (8-26) Creatinine 7.6 mg/dL (0.7-1.3) Estimated GFR (Cockcroft-Gault) 9.1 Glucose Level 126 mg/dL (70-99) Calcium Level 7.8 mg/dL (8.5-10.1) Phosphorus Level 4.1 mg/dL (2.6-4.7) Magnesium Level 1.7 mg/dL (1.8-2.4) Albumin 3.1 g/dL (3.4-5.0) Test 06/16/17 07:30 Glucose (Fingerstick) 107 mg/dL (70-99) HILDA ARECHIGA MD Jun 16, 2017 09:37
[2017-06-16] MEDS ORDERED: NALOXONE 0.4 MG/ML VIAL. IV ONE (10:00)
--- NOTE | 2017-06-16 11:34 | PDOC ---
SUBJECTIVE ROS F/up for ESRD - HD dependent Doing and feeling better CVS: no Orthopnea, no CP RESP: no SOB, no LARRY GI: no Nausea, no Vomiting : no Dysuria, no Urgency OBJECTIVE Vital Signs Vital Signs Date Time Temp Pulse Resp B/P (MAP) Pulse Ox O2 Delivery O2 Flow Rate FiO2 06/16/17 10:55 97.7 58 18 112/64 (80) 96 Room Air 97.7 I & 0 Intake and Output 06/16/17 07:00 Intake Total 920 ml Output Total 0 ml Balance 920 ml Intake Oral 920 ml Output Urine Total 0 ml PHYSICAL EXAM Physical Exam Eyes: VIsion Unchanged Conjunctiva Normal EN: No EN Drainage Mucous Memb. moist Neck: no JVD no JVP Supple no Thyromegaly CVS: S1 S2 + Murmur No Gallop No Rub no Edema Resp: no Rales no Rhonchi no Acc. Muscle use GI: BAS +ve NO Bruit Non Tender Non Distended : no CVA tenderness; no Suprapubic Tenderness DIAGNOSIS/ASSESSMENT Assessment & Plan ESRD: Current fluid and E-lyte status does not necessitate emergent need for dialysis. Will re-evaluate for dialysis in the am and continue on TSTat schedule. Low K - resolved with previous interventions -watch trend hereafter Lowisch Ricardo despite 3 Ricardo bath, correct mag and reval. - ? Add Zemplar x1 Anemia: start Epogen for hgb < 11. Transfuse with next HD as needed. HTN:- controlled:on Current BP meds as reviewed. Bone & Mineral: Phos is good ( presumablyd ue to poor PO intake) - he is not sure if he is on sensipar - tells me he takes phoslo 3 TID and with snacks Discussed Plan of Care and prognosis etc. at length with pt Problems: COMMENT/RELEVANT DATA Meds Current Medications Medications (Trade) Dose Ordered Sig/Amanda Start Time Stop Time Status Last Admin Dose Admin Clonidine HCl (Catapres) 0.1 mg BID 06/14/17 21:00 06/16/17 09:54 DC 06/16/17 09:02 0.1 MG Clopidogrel Bisulfate (Plavix) 75 mg DAILY 06/15/17 09:00 06/16/17 09:02 75 MG Dextrose (Dextrose 50%-Water Syringe) 12.5 gm PRN Q15MIN PRN 06/14/17 21:30 Diazepam (Valium) 10 mg BID 06/14/17 21:00 06/16/17 09:53 DC 06/16/17 09:01 10 MG Diphenhydramine HCl (Benadryl) 25 mg 1X PRN PRN 06/15/17 14:45 06/16/17 14:44 Influenza Virus Vaccine Quadrival (Fluarix Quad 2884-8762 Syringe) 0.5 ml ONCE ONCE 06/15/17 09:00 06/15/17 09:01 DC Info (Do NOT chart on this placeholder) 0.5 each 1X ONCE 06/14/17 18:45 06/14/17 18:56 DC 06/14/17 18:45 0.5 EACH Info (PHARMACY MONITORING -- do not chart) 1 each PRN DAILY PRN 06/15/17 14:45 UNV Insulin Aspart (NovoLOG) 0-5 UNITS TIDWMEALS 06/15/17 08:00 Isosorbide Mononitrate (Imdur) 30 mg DAILY 06/15/17 09:00 06/16/17 09:02 30 MG Lisinopril (Prinivil) 10 mg DAILY 06/15/17 09:00 06/16/17 09:02 10 MG Magnesium Sulfate/ Dextrose 50 ml @ 25 mls/hr PRN DAILY PRN 06/15/17 10:15 06/16/17 10:52 25 MLS/HR Metoprolol Tartrate (Lopressor) 100 mg BID 06/14/17 21:00 06/16/17 09:01 100 MG Minoxidil (Loniten) 2.5 mg BID@0900,1700 06/14/17 18:00 06/16/17 09:01 2.5 MG Naloxone HCl (Narcan) 0.4 mg 1X ONCE 06/16/17 10:00 06/16/17 10:01 DC 06/16/17 10:52 0.4 MG Olanzapine (ZyPREXA) 10 mg QHS 06/14/17 21:00 06/15/17 21:52 10 MG Ondansetron HCl (Zofran) 4 mg PRN Q6HRS PRN 06/14/17 17:30 Oxycodone/ Acetaminophen (Percocet 10/325) 1 tab PRN Q6HRS PRN 06/14/17 17:30 06/16/17 09:53 DC 06/16/17 09:01 1 TAB Pantoprazole Sodium (Protonix) 40 mg DAILYAC 06/14/17 18:00 06/16/17 07:57 40 MG Permethrin (Elimite) 1 nona 1X ONCE 06/15/17 10:00 06/15/17 10:01 DC 06/15/17 11:08 1 NONA Potassium Chloride (Klor-Con) 40 meq 1X ONCE 06/15/17 06:15 06/15/17 06:16 DC 06/15/17 06:14 40 MEQ Sodium Bicarbonate 50 meq/Sodium Chloride 1,050 ml @ 75 mls/hr Q14H 06/14/17 17:30 06/15/17 10:04 DC 06/15/17 08:57 75 MLS/HR Sodium Chloride 1,000 ml @ 400 mls/hr Q2H30M PRN 06/15/17 14:37 06/16/17 02:36 DC Vitamin B Complex/ Vitamin C (Iona-Dede) 1 tab DAILY 06/15/17 09:00 06/16/17 09:02 1 TAB Lab Laboratory Tests Test 06/15/17 11:36 06/15/17 18:06 06/15/17 21:37 06/16/17 05:38 Glucose (Fingerstick) 101 mg/dL (70-99) 151 mg/dL (70-99) 150 mg/dL (70-99) White Blood Count 3.6 x10^3/uL (4.0-11.0) Red Blood Count 3.97 x10^6/uL (4.30-5.70) Hemoglobin 10.6 g/dL (13.0-17.5) Hematocrit 33.1 % (39.0-53.0) Mean Corpuscular Volume 83 fL (79-100) Mean Corpuscular Hemoglobin 27 pg (25-35) Mean Corpuscular Hemoglobin Concent 32 g/dL (31-37) Red Cell Distribution Width 21.0 % (11.5-14.5) Platelet Count 113 x10^3/uL (140-400) Sodium Level 140 mmol/L (136-145) Potassium Level 4.5 mmol/L (3.5-5.1) Chloride Level 99 mmol/L (98-107) Carbon Dioxide Level 30 mmol/L (21-32) Anion Gap 11 (6-14) Blood Urea Nitrogen 23 mg/dL (8-26) Creatinine 7.6 mg/dL (0.7-1.3) Estimated GFR (Cockcroft-Gault) 9.1 Glucose Level 126 mg/dL (70-99) Calcium Level 7.8 mg/dL (8.5-10.1) Phosphorus Level 4.1 mg/dL (2.6-4.7) Magnesium Level 1.7 mg/dL (1.8-2.4) Albumin 3.1 g/dL (3.4-5.0) Test 06/16/17 07:30 Glucose (Fingerstick) 107 mg/dL (70-99) VANDANA READ MD Jun 16, 2017 11:34
[2017-06-16] MEDS ORDERED: CALCIUM ACETATE 667 MG CAPSULE PO PRN (11:45)
[2017-06-16] MEDS ORDERED: CINA30TA2 PO (11:50)
[2017-06-16] MEDS ORDERED: TAMS0.4C2 PO (11:50)
[2017-06-16] MEDS ORDERED: LEVO50TA5 PO (11:50)
[2017-06-16] MEDS ORDERED: AMLO10TA2 PO (11:50)
[2017-06-16] MEDS ORDERED: ASPI-612 PO (11:50)
[2017-06-16] MEDS: CALCIUM ACETATE 667 MG CAPSULE PO SCH ×2 (11:57→17:00)
[2017-06-16] MEDS ORDERED: PARICALCITOL 5 MCG/ML VIAL. IV ONE (12:00)
[2017-06-16] MEDS ORDERED: MAGNESIUM SULFATE 1GM 100 ML IV ONE (12:00)
[2017-06-16 12:15] LABS: HEP B SURFACE ABDY Reactive (.)
[2017-06-16] MEDS: OLANZapine 5 MG TABLET PO SCH (20:52)
[2017-06-17 03:00] VITALS: BP 121/67
[2017-06-17 05:15] LABS: HEMATOCRIT 35.8 % (39.0-53.0); HEMOGLOBIN 11.3 g/dL (13.0-17.5); RED BLOOD COUNT 4.28 x10^6/uL (4.30-5.70); RED CELL DISTRIBUTION WIDTH 20.8 % (11.5-14.5); WHITE BLOOD COUNT 4.6 x10^3/uL (4.0-11.0)
[2017-06-17 06:04] LABS: ALBUMIN 3.5 g/dL (3.4-5.0); CALCIUM 8.5 mg/dL (8.5-10.1); CREATININE 9.5 mg/dL (0.7-1.3); MAGNESIUM 2.3 mg/dL (1.8-2.4); PHOSPHORUS 3.8 mg/dL (2.6-4.7); POTASSIUM 4.9 mmol/L (3.5-5.1)
[2017-06-17 07:00] VITALS: BP 123/69
[2017-06-17] MEDS: PANTOPRAZOLE 40 MG TABLET.DR. PO SCH (07:07)
[2017-06-17] MEDS: INSULIN ASPART 300 UNITS/3 ML INSULN.PEN SQ SCH ×3 (07:49→17:00)
[2017-06-17] MEDS: CALCIUM ACETATE 667 MG CAPSULE PO SCH ×3 (08:10→17:22)
[2017-06-17] MEDS ORDERED: diphenhydrAMINE 50 MG/ML VIAL ONE (09:03)
--- NOTE | 2017-06-17 09:43 | PDOC ---
Dialysis Progress Note Dialysis Note Dialysis Note Seen on Hemodialysis, tolerating treatment Well so far Vitals on Hemodialysis: 140/63 61 afeb General Appearance: Awake: Alert Oriented x 3 Neck: No JVD or JVP Chest: CTA Saleem Heart: S1 S2 Abdomen - Soft NTND Extremities - No Edema ESRD : Dialysis as below F 180 NR 3.5 Hrs 3 K 2.5 Ca 140 Na 35 HC03 Qb 350 + Qd 500+ Heparin 0 Units Uf 1-1.5 Kgs or to dry weight as tolerated May give 25-50 gms of 25% Albumin if needed to maintain Hemodynamic stability Treatment plan reviewed and discussed with sausage wrapper Vitals Vital Signs Vital Signs Date Time Temp Pulse Resp B/P (MAP) Pulse Ox O2 Delivery O2 Flow Rate FiO2 06/17/17 08:00 Room Air 06/17/17 07:00 98.4 61 16 123/69 (87) 97 98.4 Labs Last Labs Laboratory Tests Test 06/15/17 11:36 06/15/17 16:05 06/15/17 18:06 06/15/17 21:37 Glucose (Fingerstick) 101 mg/dL (70-99) 151 mg/dL (70-99) 150 mg/dL (70-99) Hepatitis B Surface Antigen Negative (Negative) Hepatitis B Surface Antibody Reactive (.) Test 06/16/17 05:38 06/16/17 07:30 06/16/17 11:30 06/16/17 16:40 White Blood Count 3.6 x10^3/uL (4.0-11.0) Red Blood Count 3.97 x10^6/uL (4.30-5.70) Hemoglobin 10.6 g/dL (13.0-17.5) Hematocrit 33.1 % (39.0-53.0) Mean Corpuscular Volume 83 fL (79-100) Mean Corpuscular Hemoglobin 27 pg (25-35) Mean Corpuscular Hemoglobin Concent 32 g/dL (31-37) Red Cell Distribution Width 21.0 % (11.5-14.5) Platelet Count 113 x10^3/uL (140-400) Sodium Level 140 mmol/L (136-145) Potassium Level 4.5 mmol/L (3.5-5.1) Chloride Level 99 mmol/L (98-107) Carbon Dioxide Level 30 mmol/L (21-32) Anion Gap 11 (6-14) Blood Urea Nitrogen 23 mg/dL (8-26) Creatinine 7.6 mg/dL (0.7-1.3) Estimated GFR (Cockcroft-Gault) 9.1 Glucose Level 126 mg/dL (70-99) Calcium Level 7.8 mg/dL (8.5-10.1) Phosphorus Level 4.1 mg/dL (2.6-4.7) Magnesium Level 1.7 mg/dL (1.8-2.4) Albumin 3.1 g/dL (3.4-5.0) Glucose (Fingerstick) 107 mg/dL (70-99) 98 mg/dL (70-99) 80 mg/dL (70-99) Test 06/16/17 21:02 06/17/17 05:00 06/17/17 07:13 Glucose (Fingerstick) 161 mg/dL (70-99) 94 mg/dL (70-99) White Blood Count 4.6 x10^3/uL (4.0-11.0) Red Blood Count 4.28 x10^6/uL (4.30-5.70) Hemoglobin 11.3 g/dL (13.0-17.5) Hematocrit 35.8 % (39.0-53.0) Mean Corpuscular Volume 84 fL (79-100) Mean Corpuscular Hemoglobin 27 pg (25-35) Mean Corpuscular Hemoglobin Concent 32 g/dL (31-37) Red Cell Distribution Width 20.8 % (11.5-14.5) Platelet Count 146 x10^3/uL (140-400) Sodium Level 138 mmol/L (136-145) Potassium Level 4.9 mmol/L (3.5-5.1) Chloride Level 99 mmol/L (98-107) Carbon Dioxide Level 28 mmol/L (21-32) Anion Gap 11 (6-14) Blood Urea Nitrogen 36 mg/dL (8-26) Creatinine 9.5 mg/dL (0.7-1.3) Estimated GFR (Cockcroft-Gault) 7.0 Glucose Level 98 mg/dL (70-99) Calcium Level 8.5 mg/dL (8.5-10.1) Phosphorus Level 3.8 mg/dL (2.6-4.7) Magnesium Level 2.3 mg/dL (1.8-2.4) Albumin 3.5 g/dL (3.4-5.0) Laboratory Tests Test 06/16/17 11:30 06/16/17 16:40 06/16/17 21:02 06/17/17 05:00 Glucose (Fingerstick) 98 mg/dL (70-99) 80 mg/dL (70-99) 161 mg/dL (70-99) White Blood Count 4.6 x10^3/uL (4.0-11.0) Red Blood Count 4.28 x10^6/uL (4.30-5.70) Hemoglobin 11.3 g/dL (13.0-17.5) Hematocrit 35.8 % (39.0-53.0) Mean Corpuscular Volume 84 fL (79-100) Mean Corpuscular Hemoglobin 27 pg (25-35) Mean Corpuscular Hemoglobin Concent 32 g/dL (31-37) Red Cell Distribution Width 20.8 % (11.5-14.5) Platelet Count 146 x10^3/uL (140-400) Sodium Level 138 mmol/L (136-145) Potassium Level 4.9 mmol/L (3.5-5.1) Chloride Level 99 mmol/L (98-107) Carbon Dioxide Level 28 mmol/L (21-32) Anion Gap 11 (6-14) Blood Urea Nitrogen 36 mg/dL (8-26) Creatinine 9.5 mg/dL (0.7-1.3) Estimated GFR (Cockcroft-Gault) 7.0 Glucose Level 98 mg/dL (70-99) Calcium Level 8.5 mg/dL (8.5-10.1) Phosphorus Level 3.8 mg/dL (2.6-4.7) Magnesium Level 2.3 mg/dL (1.8-2.4) Albumin 3.5 g/dL (3.4-5.0) Test 06/17/17 07:13 Glucose (Fingerstick) 94 mg/dL (70-99) VANDANA READ MD Jun 17, 2017 09:43
[2017-06-17] MEDS ORDERED: diphenhydrAMINE 50 MG/ML VIAL IV PRN (09:45)
[2017-06-17] MEDS ORDERED: IV NORMAL SALINE 1000ML BAG 1,000 ML IV PRN (09:45)
[2017-06-17] MEDS ORDERED: DIALYSIS PATIENT. MC PRN ×2 (09:45)
--- NOTE | 2017-06-17 10:03 | PDOC ---
SUBJECTIVE Subjective He was seen in dialysis today, he continues to complain of pain mostly in the epigastric area and upper abdomen OBJECTIVE Vital Signs Vital Signs Date Time Temp Pulse Resp B/P (MAP) Pulse Ox O2 Delivery O2 Flow Rate FiO2 06/17/17 08:00 Room Air 06/17/17 07:00 98.4 61 16 123/69 (87) 97 98.4 06/17/17 03:00 98.1 60 18 121/67 (85) 94 Room Air 98.1 06/16/17 23:00 97.9 58 18 93/48 (63) 97 Room Air 97.9 06/16/17 20:52 58 06/16/17 20:51 58 125/53 (77) 06/16/17 19:00 97.5 58 18 103/49 (67) 99 Room Air 97.5 06/16/17 17:05 56 107/65 06/16/17 14:52 97.9 56 18 107/65 (79) 96 Room Air 97.9 06/16/17 10:55 97.7 58 18 112/64 (80) 96 Room Air 97.7 I & O Intake and Output 06/17/17 07:00 Intake Total 350 ml Output Total 0 ml Balance 350 ml Intake Oral 300 ml IV Total 50 ml Output Urine Total 0 ml # Voids 1 PHYSICAL EXAM Physical Exam Lungs fairly clear Heart regular rate and rhythm Abdomen positive tenderness in the epigastric area no rebound or guarding no masses. Bowel sounds Extremities no edema Skin he is itching less ASSESSMENT/PLAN Assessment/Plan He continues to have abdominal pain in the epigastric area despite being on proton pump inhibitor I will obtain a CT scan of the abdomen to evaluate his pancreas I also was will ask GI to see him Problems: COMMENT Lab Laboratory Tests Test 06/16/17 11:30 06/16/17 16:40 06/16/17 21:02 06/17/17 05:00 Glucose (Fingerstick) 98 mg/dL (70-99) 80 mg/dL (70-99) 161 mg/dL (70-99) White Blood Count 4.6 x10^3/uL (4.0-11.0) Red Blood Count 4.28 x10^6/uL (4.30-5.70) Hemoglobin 11.3 g/dL (13.0-17.5) Hematocrit 35.8 % (39.0-53.0) Mean Corpuscular Volume 84 fL (79-100) Mean Corpuscular Hemoglobin 27 pg (25-35) Mean Corpuscular Hemoglobin Concent 32 g/dL (31-37) Red Cell Distribution Width 20.8 % (11.5-14.5) Platelet Count 146 x10^3/uL (140-400) Sodium Level 138 mmol/L (136-145) Potassium Level 4.9 mmol/L (3.5-5.1) Chloride Level 99 mmol/L (98-107) Carbon Dioxide Level 28 mmol/L (21-32) Anion Gap 11 (6-14) Blood Urea Nitrogen 36 mg/dL (8-26) Creatinine 9.5 mg/dL (0.7-1.3) Estimated GFR (Cockcroft-Gault) 7.0 Glucose Level 98 mg/dL (70-99) Calcium Level 8.5 mg/dL (8.5-10.1) Phosphorus Level 3.8 mg/dL (2.6-4.7) Magnesium Level 2.3 mg/dL (1.8-2.4) Albumin 3.5 g/dL (3.4-5.0) Test 06/17/17 07:13 Glucose (Fingerstick) 94 mg/dL (70-99) HILDA ARECHIGA MD Jun 17, 2017 10:03
--- NOTE | 2017-06-17 12:35 | PDOC2 ---
GI CONSULT Reason For Consult: Abd pain HPI: HPI: 52 y/o male seen during dialysis. Tells me had vomiting ("brown") and "diarrhea " (solid and runny stool) x 1 after eating a fish sandwich on Wednesday. Nausea since, eating some. Periumbilical/epigastric pain worse after eating but is constant. Pain can radiate into back and down legs. H/o GERD, breakthrough reflux despite PPI, sometimes takes Tums. No hematemesis, hematochezia, melena. No NSAIDs. Thinks had colonoscopy a few years ago (here), maybe also EGD, not sure about results. On Plavix, ASA. No GB, pancreas, liver history. Thinks clothes fit more loosely, has lost weight. PMH: PMH: CAD w/ stent, HTN, HLD, COPD, GERD, anemia, DJD, ESRD on HD, DM, ?psych issues, left inguinal hernia repair FH: Family History: No pertinent hx (denies GI cancers, IBD, PUD, GB, liver disease ) Social History: Smoke: 1 pack per day ALCOHOL: occassional Drugs: None ROS: GEN: Denies fevers, chills, sweats HEENT: Denies blurred vision, sore throat CV: Denies chest pain RESP: Denies shortness of air, cough GI: Per HPI : Denies hematuria, dysuria ENDO: +weight loss NEURO: Denies confusion, dizziness MSK: +back and leg pain SKIN: Denies jaundice, pruritus Vitals: Vitals: Vital Signs Date Time Temp Pulse Resp B/P (MAP) Pulse Ox O2 Delivery O2 Flow Rate FiO2 06/17/17 11:00 Off unit 06/17/17 07:00 98.4 61 16 123/69 (87) 97 98.4 Labs: Labs: Laboratory Tests Test 06/16/17 16:40 06/16/17 21:02 06/17/17 05:00 06/17/17 07:13 Glucose (Fingerstick) 80 mg/dL (70-99) 161 mg/dL (70-99) 94 mg/dL (70-99) White Blood Count 4.6 x10^3/uL (4.0-11.0) Red Blood Count 4.28 x10^6/uL (4.30-5.70) Hemoglobin 11.3 g/dL (13.0-17.5) Hematocrit 35.8 % (39.0-53.0) Mean Corpuscular Volume 84 fL (79-100) Mean Corpuscular Hemoglobin 27 pg (25-35) Mean Corpuscular Hemoglobin Concent 32 g/dL (31-37) Red Cell Distribution Width 20.8 % (11.5-14.5) Platelet Count 146 x10^3/uL (140-400) Sodium Level 138 mmol/L (136-145) Potassium Level 4.9 mmol/L (3.5-5.1) Chloride Level 99 mmol/L (98-107) Carbon Dioxide Level 28 mmol/L (21-32) Anion Gap 11 (6-14) Blood Urea Nitrogen 36 mg/dL (8-26) Creatinine 9.5 mg/dL (0.7-1.3) Estimated GFR (Cockcroft-Gault) 7.0 Glucose Level 98 mg/dL (70-99) Calcium Level 8.5 mg/dL (8.5-10.1) Phosphorus Level 3.8 mg/dL (2.6-4.7) Magnesium Level 2.3 mg/dL (1.8-2.4) Albumin 3.5 g/dL (3.4-5.0) Allergies: Coded Allergies: povidone-iodine (Verified Allergy, Intermediate, 10/16/13) Medications: Please see EMR. Imaging: Imaging: CXR Impression: No acute cardiopulmonary process is detected. PE: GEN: NAD HEENT: Atraumatic, PERRLA LUNGS: CTAB HEART: RRR, no murmurs ABD: NABS, S/ND/NT, no masses EXTREMITY: No edema SKIN: No rashes, no jaundice NEURO/PSYCH: A & O 3 A/P: A/P: Upper abd pain -constant, worse after eating Vomiting and "diarrhea" - resolved GERD -on PPI, perhaps previous EGD ESRD on HD, CAD on Plavix, anemia CRC screen -recalls previous colonoscopy ?weight loss -- ?food poisoning - no more vomiting or diarrhea, but abd pain persists Continue PPI w/ GERD. Will review w/ Dr. Sim re: abd imaging (US or CT). CONY GOLDMAN Jun 17, 2017 12:35
[2017-06-17 13:32] VITALS: BP 137/63
[2017-06-17] MEDS: CLOPIDOGREL BISULFATE 75 MG TABLET PO SCH (13:33)
[2017-06-17] MEDS: FOLIC/VIT B COMP W-C (RENAL) TABLET. PO SCH (13:33)
[2017-06-17] MEDS: MINOXIDIL 2.5 MG TABLET PO SCH ×2 (13:34→16:38)
[2017-06-17] MEDS: ISOSORBIDE MONONITRATE ER 30 MG TAB.ER.24H PO SCH (13:34)
[2017-06-17] MEDS: METOPROLOL TART IMMED RELEASE 50 MG TABLET. PO SCH ×2 (13:34→23:48)
[2017-06-17] MEDS: LISINOPRIL 10 MG TABLET PO SCH (13:35)
[2017-06-17 15:00] VITALS: BP 130/74
--- NOTE | 2017-06-17 15:06 | RAD ---
Indication: Abdominal pain and diarrhea. Axial imaging through the abdomen and pelvis was performed without contrast. Comparison is made with prior CT from 04/28/2007. The lung bases are clear. No focal liver mass is identified. The gallbladder appears contracted. Stomach appears to be distended by ingested material and also demonstrates questionable wall thickening. The visualized pancreas is unremarkable. The spleen is unremarkable. No adrenal mass is identified. There appears to be renal atrophy bilaterally. Aorta and mesenteric vessels are heavily calcified but nonaneurysmal. The bowel loops appear normal caliber. There is moderate stool in the right colon. There is no ascites or inflammatory process. The bladder is decompressed. The prostate is unremarkable. The bony structures appear nonacute. Impression: 1. Moderate gastric distention and questionable wall thickening, indeterminate. Correlation with endoscopy may be useful. 2. Bilateral renal atrophy. 3. No other significant abnormality is detected. PQRS Compliance Statement: One or more of the following individualized dose reduction techniques were utilized for this examination: 1. Automated exposure control 2. Adjustment of the mA and/or kV according to patient size 3. Use of iterative reconstruction technique
[2017-06-17 19:00] VITALS: BP 104/50
[2017-06-17] MEDS: OLANZapine 5 MG TABLET PO SCH (20:56)
[2017-06-17 23:00] VITALS: BP 122/62
[2017-06-18 03:00] VITALS: BP 127/61
[2017-06-18] MEDS: PANTOPRAZOLE 40 MG TABLET.DR. PO SCH (05:59)
[2017-06-18 07:00] VITALS: BP 154/67
[2017-06-18] MEDS: INSULIN ASPART 300 UNITS/3 ML INSULN.PEN SQ SCH ×3 (07:55→17:00)
[2017-06-18] MEDS: METOPROLOL TART IMMED RELEASE 50 MG TABLET. PO SCH ×2 (08:40→20:34)
[2017-06-18] MEDS: MINOXIDIL 2.5 MG TABLET PO SCH (08:41)
[2017-06-18] MEDS: LISINOPRIL 10 MG TABLET PO SCH (08:41)
[2017-06-18] MEDS: CALCIUM ACETATE 667 MG CAPSULE PO SCH ×3 (08:41→17:16)
[2017-06-18] MEDS: ISOSORBIDE MONONITRATE ER 30 MG TAB.ER.24H PO SCH (08:41)
[2017-06-18] MEDS: CLOPIDOGREL BISULFATE 75 MG TABLET PO SCH (08:41)
[2017-06-18] MEDS: FOLIC/VIT B COMP W-C (RENAL) TABLET. PO SCH (08:41)
[2017-06-18 11:00] VITALS: BP 96/53
--- NOTE | 2017-06-18 13:59 | PDOC ---
SUBJECTIVE ROS F/up ESRD feeling well today CVS: no Orthopnea, no CP RESP: no SOB, no LARRY GI: no Nausea, no Vomiting : no Dysuria, no Urgency OBJECTIVE Vital Signs Vital Signs Date Time Temp Pulse Resp B/P (MAP) Pulse Ox O2 Delivery O2 Flow Rate FiO2 06/18/17 11:00 98.3 61 20 96/53 (67) 96 Room Air 98.3 I & 0 Intake and Output 06/18/17 07:00 Intake Total 720 ml Output Total 250 ml Balance 470 ml Intake Oral 720 ml Output Urine Total 250 ml # Voids 1 PHYSICAL EXAM Physical Exam Eyes: VIsion Unchanged Conjunctiva Normal EN: No EN Drainage Mucous Memb. moist Neck: no JVD no JVP Supple no Thyromegaly CVS: S1 S2 + Murmur No Gallop No Rub no Edema Resp: no Rales no Rhonchi no Acc. Muscle use GI: BAS +ve NO Bruit Non Tender Non Distended : no CVA tenderness; no Suprapubic Tenderness DIAGNOSIS/ASSESSMENT Assessment & Plan ESRD: Current fluid and E-lyte status does not necessitate emergent need for dialysis. Will re-evaluate for dialysis in the am and continue on TTSat schedule. Lowisch Ricardo : Better now - reval with am labs for drop. Suspect due to Sensipar. (Pts med list was reclarified from admit) Anemia: start Epogen for hgb < 11. Transfuse with next HD as needed. HTN:- controlled:on Current BP meds as reviewed. see O for kecianes Bone & Mineral: Phos is good on current binders and while on sensipar Discussed Plan of Care and prognosis etc. at length with pt - OK to D/c From Renal standpoint COMMENT/RELEVANT DATA Meds Current Medications Medications (Trade) Dose Ordered Sig/Amanda Start Time Stop Time Status Last Admin Dose Admin Calcium Acetate (Phoslo) 2,001 mg TID PRN PRN 06/16/17 11:45 Clonidine HCl (Catapres) 0.1 mg BID 06/14/17 21:00 06/16/17 09:54 DC 06/16/17 09:02 0.1 MG Clopidogrel Bisulfate (Plavix) 75 mg DAILY 06/15/17 09:00 06/18/17 08:41 75 MG Darbepoetin Trino (Aranesp) 60 mcg WEEKLYHS 06/23/17 21:00 Dextrose (Dextrose 50%-Water Syringe) 12.5 gm PRN Q15MIN PRN 06/14/17 21:30 Diazepam (Valium) 10 mg BID 06/14/17 21:00 06/16/17 09:53 DC 06/16/17 09:01 10 MG Diphenhydramine HCl (Benadryl) 25 mg 1X PRN PRN 06/17/17 09:45 06/18/17 09:44 DC 06/17/17 09:00 25 MG Influenza Virus Vaccine Quadrival (Fluarix Quad [id number] Syringe) 0.5 ml ONCE ONCE 06/15/17 09:00 06/15/17 09:01 DC Info (Do NOT chart on this placeholder) 0.5 each 1X ONCE 06/14/17 18:45 06/14/17 18:56 DC 06/14/17 18:45 0.5 EACH Info (PHARMACY MONITORING -- do not chart) 1 each PRN DAILY PRN 06/17/17 09:45 UNV Insulin Aspart (NovoLOG) 0-5 UNITS TIDWMEALS 06/15/17 08:00 Isosorbide Mononitrate (Imdur) 30 mg DAILY 06/15/17 09:00 06/18/17 08:41 30 MG Lisinopril (Prinivil) 10 mg DAILY 06/15/17 09:00 06/18/17 08:41 10 MG Magnesium Sulfate/ Dextrose 100 ml @ 100 mls/hr 1X ONCE 06/16/17 12:00 06/16/17 12:00 DC Metoprolol Tartrate (Lopressor) 100 mg BID 06/14/17 21:00 06/18/17 08:40 100 MG Minoxidil (Loniten) 2.5 mg BID@0900,1700 06/14/17 18:00 06/18/17 08:41 2.5 MG Naloxone HCl (Narcan) 0.4 mg 1X ONCE 06/16/17 10:00 06/16/17 10:01 DC 06/16/17 10:52 0.4 MG Olanzapine (ZyPREXA) 10 mg QHS 06/14/17 21:00 06/17/17 20:56 10 MG Ondansetron HCl (Zofran) 4 mg PRN Q6HRS PRN 06/14/17 17:30 Oxycodone/ Acetaminophen (Percocet 10/325) 1 tab PRN Q6HRS PRN 06/14/17 17:30 06/16/17 09:53 DC 06/16/17 09:01 1 TAB Pantoprazole Sodium (Protonix) 40 mg DAILYAC 06/14/17 18:00 06/18/17 05:59 40 MG Paricalcitol (Zemplar) 5 mcg 1X ONCE 06/16/17 12:00 06/16/17 12:01 DC 06/16/17 11:57 5 MCG Permethrin (Elimite) 1 nona 1X ONCE 06/15/17 10:00 06/15/17 10:01 DC 06/15/17 11:08 1 NONA Potassium Chloride (Klor-Con) 40 meq 1X ONCE 06/15/17 06:15 06/15/17 06:16 DC 06/15/17 06:14 40 MEQ Sodium Bicarbonate 50 meq/Sodium Chloride 1,050 ml @ 75 mls/hr Q14H 06/14/17 17:30 06/15/17 10:04 DC 06/15/17 08:57 75 MLS/HR Sodium Chloride 1,000 ml @ 1,000 mls/hr Q1H PRN 06/17/17 09:45 06/17/17 15:44 DC Vitamin B Complex/ Vitamin C (Iona-Dede) 1 tab DAILY 06/15/17 09:00 06/18/17 08:41 1 TAB Lab Laboratory Tests Test 06/17/17 16:47 06/17/17 19:49 06/18/17 07:31 06/18/17 11:18 Glucose (Fingerstick) 158 mg/dL (70-99) 107 mg/dL (70-99) 153 mg/dL (70-99) 157 mg/dL (70-99) VANDANA READ MD Jun 18, 2017 13:59
--- NOTE | 2017-06-18 13:59 | PDOC ---
SUBJECTIVE Subjective feels better today, less pain, less nausea, able to eat better, passing lots of gas, OBJECTIVE Vital Signs Vital Signs Date Time Temp Pulse Resp B/P (MAP) Pulse Ox O2 Delivery O2 Flow Rate FiO2 06/18/17 11:00 98.3 61 20 96/53 (67) 96 Room Air 98.3 06/18/17 08:41 62 154/67 06/18/17 08:41 62 154/67 06/18/17 08:41 62 154/67 06/18/17 08:40 62 154/67 06/18/17 08:30 Room Air 06/18/17 07:00 98.3 62 20 154/67 (96) 95 Room Air 98.3 06/18/17 03:00 98.6 65 16 127/61 (83) 96 Room Air 98.6 06/17/17 23:48 61 122/62 06/17/17 23:00 98.7 61 16 122/62 (82) 97 Room Air 98.7 06/17/17 19:00 98.5 64 16 104/50 (68) 95 Room Air 98.5 06/17/17 15:00 98.9 68 16 130/74 (92) 97 98.9 I & O Intake and Output 06/18/17 07:00 Intake Total 720 ml Output Total 250 ml Balance 470 ml Intake Oral 720 ml Output Urine Total 250 ml # Voids 1 PHYSICAL EXAM Physical Exam lungs clear heart RRR abd less tender in the epigastric area ext no edema ASSESSMENT/PLAN Assessment/Plan improving on PPI , plan home after dialysis in AM Problems: COMMENT Lab Laboratory Tests Test 06/17/17 16:47 06/17/17 19:49 06/18/17 07:31 06/18/17 11:18 Glucose (Fingerstick) 158 mg/dL (70-99) 107 mg/dL (70-99) 153 mg/dL (70-99) 157 mg/dL (70-99) HILDA ARECHIGA MD Jun 18, 2017 13:59
--- NOTE | 2017-06-18 14:02 | PDOC ---
Subjective: Subjective: Feels better today. Eating ice cream, going to eat cake next. Objective: Vital Signs: Vital Signs Date Time Temp Pulse Resp B/P (MAP) Pulse Ox O2 Delivery O2 Flow Rate FiO2 06/18/17 11:00 98.3 61 20 96/53 (67) 96 Room Air 98.3 Labs: Laboratory Tests Test 06/17/17 16:47 06/17/17 19:49 06/18/17 07:31 06/18/17 11:18 Glucose (Fingerstick) 158 mg/dL 107 mg/dL 153 mg/dL 157 mg/dL PE: GEN: NAD LUNGS: CTAB HEART: RRR ABD: NABS, S/ND/NT NEURO/PSYCH: A & O 3 A/P: Upper abd pain - resolved GERD - on PPI -- Eating well this afternoon w/o pain. Continue PPI. CONY GOLDMAN Jun 18, 2017 14:02
[2017-06-18 15:00] VITALS: BP 121/63
[2017-06-18 19:00] VITALS: BP 101/71
[2017-06-18] MEDS: OLANZapine 5 MG TABLET PO SCH (21:00)
[2017-06-18] MEDS: HYDROcodone/APAP 5/325MG 1 TAB TABLET PO PRN (21:11)
[2017-06-19 03:05] VITALS: BP 134/29
[2017-06-19] MEDS: PANTOPRAZOLE 40 MG TABLET.DR. PO SCH (06:39)
[2017-06-19 07:00] VITALS: BP 146/76
[2017-06-19] MEDS: CALCIUM ACETATE 667 MG CAPSULE PO SCH ×3 (07:54→17:05)
[2017-06-19] MEDS: INSULIN ASPART 300 UNITS/3 ML INSULN.PEN SQ SCH ×3 (07:55→16:40)
[2017-06-19] MEDS ORDERED: IV NORMAL SALINE 1000ML BAG 1,000 ML IV PRN ×2 (08:20)
[2017-06-19] MEDS ORDERED: DIALYSIS PATIENT. MC PRN (08:30)
[2017-06-19] MEDS ORDERED: diphenhydrAMINE 50 MG/ML VIAL IV PRN ×2 (08:30)
[2017-06-19] MEDS ORDERED: 0.9 % SODIUM CHLORIDE 10 ML DISP.SYRIN. IV PRN ×2 (08:30)
[2017-06-19] MEDS: metroNIDAZOLE 500 MG TABLET PO SCH ×3 (08:54→21:00)
[2017-06-19] MEDS: FOLIC/VIT B COMP W-C (RENAL) TABLET. PO SCH (08:54)
--- NOTE | 2017-06-19 10:05 | PDOC ---
SUBJECTIVE Subjective feels better but too weak to go home, no help at home OBJECTIVE Vital Signs Vital Signs Date Time Temp Pulse Resp B/P (MAP) Pulse Ox O2 Delivery O2 Flow Rate FiO2 06/19/17 07:00 98.1 60 20 146/76 (99) 92 Room Air 98.1 06/19/17 03:05 97.7 63 20 134/29 (64) 99 Room Air 97.7 06/18/17 22:11 18 99 Room Air 06/18/17 21:11 20 95 Room Air 06/18/17 20:34 65 124/55 06/18/17 19:00 98.8 67 18 101/71 (81) 95 Room Air 98.8 06/18/17 15:00 98.6 62 20 121/63 (82) 96 Room Air 98.6 06/18/17 11:00 98.3 61 20 96/53 (67) 96 Room Air 98.3 I & O Intake and Output 06/19/17 07:00 Intake Total 750 ml Balance 750 ml Intake Oral 750 ml # Voids 2 # Bowel Movements 1 PHYSICAL EXAM Physical Exam still with abdominal pain ASSESSMENT/PLAN Assessment/Plan 1-c Diff colitis on flagyl 2-abdominal pain 3- ESRD on dialysis 4-itching improved need retreatment in 1 week want SNU due to lack of support at home , will ask social SVC and PT eval Problems: COMMENT Lab Laboratory Tests Test 06/18/17 11:18 06/18/17 16:14 06/18/17 16:30 06/18/17 20:40 Glucose (Fingerstick) 157 mg/dL (70-99) 138 mg/dL (70-99) 156 mg/dL (70-99) Clostridium difficile Toxin (PCR) Positive (Negative) Test 06/19/17 07:43 Glucose (Fingerstick) 108 mg/dL (70-99) HILDA ARECHIGA MD Jun 19, 2017 10:05
--- NOTE | 2017-06-19 10:24 | PDOC ---
Dialysis Progress Note Dialysis Note Dialysis Note Seen on Hemodialysis, tolerating treatment Well so far Vitals on Hemodialysis: 159/81 61 afeb General Appearance: Awake: Alert Oriented x 3 Neck: No JVD or JVP Chest: CTA Saleem Heart: S1 S2 Abdomen - Soft NTND Extremities - No Edema ESRD : Dialysis as below F 180 NR 3.5 Hrs 2 K 2.5 Ca 140 Na 35 HC03 Qb 350 + Qd 500+ Heparin 0 Units Uf 2-3 Kgs or to dry weight as tolerated May give 25-50 gms of 25% Albumin if needed to maintain Hemodynamic stability Treatment plan reviewed and discussed with vb net developer Vitals Vital Signs Vital Signs Date Time Temp Pulse Resp B/P (MAP) Pulse Ox O2 Delivery O2 Flow Rate FiO2 06/19/17 08:00 Room Air 06/19/17 07:00 98.1 60 20 146/76 (99) 92 98.1 Labs Last Labs Laboratory Tests Test 06/17/17 12:54 06/17/17 16:47 06/17/17 19:49 06/18/17 07:31 Glucose (Fingerstick) 76 mg/dL (70-99) 158 mg/dL (70-99) 107 mg/dL (70-99) 153 mg/dL (70-99) Test 06/18/17 11:18 06/18/17 16:14 06/18/17 16:30 06/18/17 20:40 Glucose (Fingerstick) 157 mg/dL (70-99) 138 mg/dL (70-99) 156 mg/dL (70-99) Clostridium difficile Toxin (PCR) Positive (Negative) Test 06/19/17 07:43 Glucose (Fingerstick) 108 mg/dL (70-99) Laboratory Tests Test 06/18/17 11:18 06/18/17 16:14 06/18/17 16:30 06/18/17 20:40 Glucose (Fingerstick) 157 mg/dL (70-99) 138 mg/dL (70-99) 156 mg/dL (70-99) Clostridium difficile Toxin (PCR) Positive (Negative) Test 06/19/17 07:43 Glucose (Fingerstick) 108 mg/dL (70-99) VANDANA READ MD Jun 19, 2017 10:24
[2017-06-19] MEDS: METOPROLOL TART IMMED RELEASE 50 MG TABLET. PO SCH ×2 (13:05→21:11)
[2017-06-19] MEDS: ISOSORBIDE MONONITRATE ER 30 MG TAB.ER.24H PO SCH (13:05)
[2017-06-19] MEDS: CLOPIDOGREL BISULFATE 75 MG TABLET PO SCH (13:06)
[2017-06-19] MEDS: LISINOPRIL 40 MG TABLET. PO SCH (13:06)
[2017-06-19 15:00] VITALS: BP 116/50
[2017-06-19 15:12] LABS: HEMATOCRIT 34.9 % (39.0-53.0); RED BLOOD COUNT 4.19 x10^6/uL (4.30-5.70); RED CELL DISTRIBUTION WIDTH 20.6 % (11.5-14.5); WHITE BLOOD COUNT 3.8 x10^3/uL (4.0-11.0)
[2017-06-19] MEDS: HYDROcodone/APAP 5/325MG 1 TAB TABLET PO PRN ×2 (15:15→21:10)
[2017-06-19 15:32] LABS: ALBUMIN 3.4 g/dL (3.4-5.0); CALCIUM 9.1 mg/dL (8.5-10.1); CREATININE 4.2 mg/dL (0.7-1.3); MAGNESIUM 1.8 mg/dL (1.8-2.4); PHOSPHORUS 1.4 mg/dL (2.6-4.7); POTASSIUM 4.3 mmol/L (3.5-5.1)
[2017-06-19 19:00] VITALS: BP 142/58
[2017-06-19] MEDS: OLANZapine 5 MG TABLET PO SCH (21:10)
[2017-06-19 23:00] VITALS: BP 142/50
[2017-06-20 03:00] VITALS: BP 143/72
--- NOTE | 2017-06-20 06:59 | PDOC ---
SUBJECTIVE Subjective feels better and anxious to go home OBJECTIVE Vital Signs Vital Signs Date Time Temp Pulse Resp B/P (MAP) Pulse Ox O2 Delivery O2 Flow Rate FiO2 06/20/17 03:00 97.5 57 20 143/72 (95) 97 Room Air 97.5 06/19/17 23:00 98.8 56 20 142/50 (80) 95 Room Air 98.8 06/19/17 22:10 94 Room Air 06/19/17 21:11 61 142/58 06/19/17 21:10 94 Room Air 06/19/17 19:45 Room Air 06/19/17 19:00 97.9 61 20 142/58 (86) 94 Room Air 97.9 06/19/17 16:15 18 06/19/17 15:15 18 Room Air 06/19/17 15:00 98.6 67 20 116/50 (72) 99 Room Air 98.6 06/19/17 13:06 62 148/65 06/19/17 13:05 62 148/65 06/19/17 13:05 62 148/62 06/19/17 08:00 Room Air 06/19/17 07:00 98.1 60 20 146/76 (99) 92 Room Air 98.1 I & O Intake and Output 06/20/17 07:00 Intake Total 500 ml Output Total 0 ml Balance 500 ml Intake Oral 500 ml Output Urine Total 0 ml PHYSICAL EXAM Physical Exam abd less tender ASSESSMENT/PLAN Assessment/Plan 1-c Diff colitis on flagyl 2-abdominal pain 3- ESRD on dialysis 4-itching improved need retreatment in 1 week feels better and wants to go home instead of SNU Problems: COMMENT Lab Laboratory Tests Test 06/19/17 07:43 06/19/17 13:12 06/19/17 15:00 06/19/17 16:30 Glucose (Fingerstick) 108 mg/dL (70-99) 82 mg/dL (70-99) 134 mg/dL (70-99) White Blood Count 3.8 x10^3/uL (4.0-11.0) Red Blood Count 4.19 x10^6/uL (4.30-5.70) Hemoglobin 11.0 g/dL (13.0-17.5) Hematocrit 34.9 % (39.0-53.0) Mean Corpuscular Volume 83 fL (79-100) Mean Corpuscular Hemoglobin 26 pg (25-35) Mean Corpuscular Hemoglobin Concent 32 g/dL (31-37) Red Cell Distribution Width 20.6 % (11.5-14.5) Platelet Count 123 x10^3/uL (140-400) Sodium Level 138 mmol/L (136-145) Potassium Level 4.3 mmol/L (3.5-5.1) Chloride Level 97 mmol/L (98-107) Carbon Dioxide Level 33 mmol/L (21-32) Anion Gap 8 (6-14) Blood Urea Nitrogen 11 mg/dL (8-26) Creatinine 4.2 mg/dL (0.7-1.3) Estimated GFR (Cockcroft-Gault) 18.0 Glucose Level 105 mg/dL (70-99) Calcium Level 9.1 mg/dL (8.5-10.1) Phosphorus Level 1.4 mg/dL (2.6-4.7) Magnesium Level 1.8 mg/dL (1.8-2.4) Albumin 3.4 g/dL (3.4-5.0) Test 06/19/17 20:25 Glucose (Fingerstick) 144 mg/dL (70-99) HILDA ARECHIGA MD Jun 20, 2017 06:59
[2017-06-20 07:39] VITALS: BP 125/59
[2017-06-20] MEDS ORDERED: METR500T PO (07:39)
[2017-06-20] MEDS ORDERED: HYDR-2758 PO (07:39)
[2017-06-20] MEDS ORDERED: LISI40TA PO (07:39)
--- NOTE | 2017-06-20 07:46 | PDOC3 ---
*Discharge Summary* Date of Admission: Jun 14, 2017 Date of Discharge: Jun 20, 2017 Final Diagnosis 1-C.Diff colitis 2- Gastroenteritis, N/V and diarrhea 3-dehydration 4-hypokalemia replaced 5-HTN 6-CAD by hx and stent 7-smoker 8-GERD 9-scabies CONSULTS GI/ Nephrology Procedures Dialysis, CT abd and pelvis, CXR Brief Hospital Course Mr. Garza is a 52 old [sex] who presented with [ ] Disposition/Orders: D/C to Home CONDITION AT DISCHARGE: Improved Diet: Renal Home Meds Active Scripts Hydrocodone Bit/Acetaminophen (HYDROCODONE-APAP 5-325 ) 1 Each Tablet, 1 TAB PO PRN Q24HRS Y for PAIN for 30 Days, #30 TAB 0 Refills Prov:HILDA ARECHIGA MD 06/20/17 Metronidazole (FLAGYL) 500 Mg Tablet, 500 MG PO TID for 10 Days, #30 TAB 30 Refills Prov:HILDA ARECHIGA MD 06/20/17 Lisinopril (LISINOPRIL) 40 Mg Tablet, 1 TAB PO DAILY, #30 TAB 5 Refills Prov:HILDA ARECHIGA MD 06/20/17 Reported Medications Cinacalcet Hcl (SENSIPAR) 30 Mg Tablet, 30 MG PO DAILY16 06/16/17 Levothyroxine Sodium (LEVOTHYROXINE SODIUM) 50 Mcg Tablet, 50 MCG PO DAILY06 06/16/17 Aspirin (ASPIRIN EC) 81 Mg Tablet.dr, 81 MG PO DAILY 06/16/17 Ferrous Sulfate (FERROUS SULFATE) 325 Mg Tablet, 325 MG PO BID 10/16/13 Folic Acid/Vitamin B Comp W-C (DIALYVITE TABLET) 1 Each Tablet, 1 EACH PO DAILY 10/16/13 Clopidogrel Bisulfate (CLOPIDOGREL) 75 Mg Tablet, 75 MG PO DAILY 10/16/13 Omeprazole (OMEPRAZOLE) 20 Mg Capsule.dr, 20 MG PO BID 10/16/13 Isosorbide Mononitrate (ISOSORBIDE MONONITRATE ER) 30 Mg Tab.er.24h, 30 MG PO DAILY 10/16/13 Metoprolol Tartrate (METOPROLOL TARTRATE) 100 Mg Tablet, 100 MG PO BID 10/16/13 Olanzapine (OLANZAPINE) 10 Mg Tablet, 10 MG PO HS 10/16/13 Discontinued Reported Medications Tamsulosin Hcl (TAMSULOSIN HCL) 0.4 Mg Cap.er.24h, 0.4 MG PO DAILY 06/16/17 Amlodipine Besylate (AMLODIPINE BESYLATE) 10 Mg Tablet, 10 MG PO DAILY 06/16/17 Diphenhydramine Hcl (BENADRYL) 25 Mg Capsule, 2 CAP PO PRN Q6HRS Y for ITCHING, #60 CAP 2 Refills 06/14/17 Diphenhydramine Hcl (BENADRYL) 25 Mg Capsule, 1 CAP PO PRN Q6HRS Y for ITCHING, #30 CAP 1 Refill 06/14/17 Diazepam (Diazepam) 10 Mg Tablet, 10 MG PO BID, TAB 06/14/17 Oxycodone/Apap 10-325 (PERCOCET 10-325 MG TABLET) 1 Each Tablet, 1 TAB PO PRN Q6HRS Y for PAIN, TAB 0 Refills 06/14/17 Lisinopril (LISINOPRIL) 10 Mg Tablet, 10 MG PO DAILY 10/16/13 Clonidine Hcl (CLONIDINE HCL) 0.1 Mg Tablet, 0.2 MG PO BID 10/16/13 Minoxidil (MINOXIDIL) 2.5 Mg Tablet, 2.5 MG PO BID 10/16/13 Scheduled Aspirin (Aspirin Ec), 81 MG PO DAILY, (Reported) Cinacalcet Hcl (Sensipar), 30 MG PO DAILY16, (Reported) Clopidogrel Bisulfate (Clopidogrel), 75 MG PO DAILY, (Reported) Ferrous Sulfate (Ferrous Sulfate), 325 MG PO BID, (Reported) Folic Acid/Vitamin B Comp W-C (Dialyvite Tablet), 1 EACH PO DAILY, (Reported) Isosorbide Mononitrate (Isosorbide Mononitrate Er), 30 MG PO DAILY, (Reported) Levothyroxine Sodium (Levothyroxine Sodium), 50 MCG PO DAILY06, (Reported) Lisinopril (Lisinopril), 1 TAB PO DAILY Metoprolol Tartrate (Metoprolol Tartrate), 100 MG PO BID, (Reported) Metronidazole (Flagyl), 500 MG PO TID Olanzapine (Olanzapine), 10 MG PO HS, (Reported) Omeprazole (Omeprazole), 20 MG PO BID, (Reported) Scheduled PRN Hydrocodone Bit/Acetaminophen (Hydrocodone-Apap 5-325 ), 1 TAB PO PRN Q24HRS PRN for PAIN Discontinued Medications Amlodipine Besylate (Amlodipine Besylate), 10 MG PO DAILY, (Reported) Clonidine Hcl (Clonidine Hcl), 0.2 MG PO BID, (Reported) Diazepam (Diazepam), 10 MG PO BID, (Reported) Diphenhydramine Hcl (Benadryl), 1 CAP PO PRN Q6HRS PRN for ITCHING, (Reported) Diphenhydramine Hcl (Benadryl), 2 CAP PO PRN Q6HRS PRN for ITCHING, (Reported) Lisinopril (Lisinopril), 10 MG PO DAILY, (Reported) Discontinued Reason: Prescription changed Minoxidil (Minoxidil), 2.5 MG PO BID, (Reported) Oxycodone/Apap 10-325 (Percocet 10-325 Mg Tablet), 1 TAB PO PRN Q6HRS PRN for PAIN, (Reported) Tamsulosin Hcl (Tamsulosin Hcl), 0.4 MG PO DAILY, (Reported) Scripts Hydrocodone Bit/Acetaminophen (HYDROCODONE-APAP 5-325 ) 1 Each Tablet 1 TAB PO PRN Q24HRS Y for PAIN for 30 Days, #30 TAB 0 Refills Prov: HILAD ARECHIGA MD 06/20/17 Metronidazole (FLAGYL) 500 Mg Tablet 500 MG PO TID for 10 Days, #30 TAB 30 Refills Prov: HILDA ARECHIGA MD 06/20/17 Lisinopril (LISINOPRIL) 40 Mg Tablet 1 TAB PO DAILY, #30 TAB 5 Refills Prov: HILDA ARECHIGA MD 06/20/17 FOLLOW UP APPOINTMENT: office 10 day Time Spent Total time spent with patient [] minutes for coordination of care, counseling, and education. HILDA ARECHIGA MD Jun 20, 2017 07:46
[2017-06-20] MEDS: INSULIN ASPART 300 UNITS/3 ML INSULN.PEN SQ SCH (07:48)
[2017-06-20] MEDS: PANTOPRAZOLE 40 MG TABLET.DR. PO SCH (07:50)
[2017-06-20] MEDS: CALCIUM ACETATE 667 MG CAPSULE PO SCH (07:50)
[2017-06-20] MEDS: ISOSORBIDE MONONITRATE ER 30 MG TAB.ER.24H PO SCH (08:15)
[2017-06-20] MEDS: CLOPIDOGREL BISULFATE 75 MG TABLET PO SCH (08:15)
[2017-06-20] MEDS: FOLIC/VIT B COMP W-C (RENAL) TABLET. PO SCH (08:15)
[2017-06-20] MEDS: metroNIDAZOLE 500 MG TABLET PO SCH (08:15)
[2017-06-20] MEDS: LISINOPRIL 40 MG TABLET. PO SCH (08:16)
[2017-06-20 08:17] VITALS: BP 125/59
[2017-06-20] MEDS: METOPROLOL TART IMMED RELEASE 50 MG TABLET. PO SCH (08:17)
[2017-06-20] MEDS: HYDROcodone/APAP 5/325MG 1 TAB TABLET PO PRN (08:19)
[2017-06-23] MEDS ORDERED: DARBEPOETIN ALFA 60 MCG/0.3 ML DISP.SYRIN. SQ SCH (21:00)
== END 2017-06-20 09:10 | disposition home or self-care (01) | DRG 371 ==
LOC: 5 NORTH 16:22
PROVIDERS: ADMIT Internal Medicine; ATTEND Internal Medicine
PROC: 5A1D70Z Performance of Urinary Filtration, Intermittent, Less than 6 Hours Per Day (ICD-10-PCS; 2017-06-17)
PROC: 5A1D70Z Performance of Urinary Filtration, Intermittent, Less than 6 Hours Per Day (ICD-10-PCS; principal; 2017-06-19)
DX: A04.72 Enterocolitis due to Clostridium difficile, not specified as recurrent (principal); N18.6 End stage renal disease; E11.22 Type 2 diabetes mellitus with diabetic chronic kidney disease; I12.0 Hypertensive chronic kidney disease with stage 5 chronic kidney disease or end stage renal disease; B86 Scabies; D64.9 Anemia, unspecified; E78.5 Hyperlipidemia, unspecified; T62.91XA Toxic effect of unspecified noxious substance eaten as food, accidental (unintentional), initial encounter; E86.0 Dehydration; E87.6 Hypokalemia; F17.210 Nicotine dependence, cigarettes, uncomplicated; I25.10 Atherosclerotic heart disease of native coronary artery without angina pectoris; J44.9 Chronic obstructive pulmonary disease, unspecified; K21.9 Gastro-esophageal reflux disease without esophagitis; K40.90 Unilateral inguinal hernia, without obstruction or gangrene, not specified as recurrent; M19.90 Unspecified osteoarthritis, unspecified site; Z82.49 Family history of ischemic heart disease and other diseases of the circulatory system; Z79.82 Long term (current) use of aspirin; Z95.5 Presence of coronary angioplasty implant and graft; Z99.2 Dependence on renal dialysis; Z88.8 Allergy status to other drugs, medicaments and biological substances; Z79.899 Other long term (current) drug therapy; Y92.9 Unspecified place or not applicable
CPT/HCPCS: 36415; 71010; 74176; 80053; 80069; 82962; 83690; 83735; 85025; 85027; 85651; 86706; 87324; 87340; J1200; J1815; J2310; J2501; J7060; Q0163